=== PATIENT | female | born 1945 | race Hispanic/Latino ===

== ENCOUNTER 2018-11-20 12:29 | Inpatient (IN) | payer OTHER ==
[2018-11-20 12:52] VITALS: BMI 23.5
[2018-11-20] MEDS ORDERED: CIPROFLOXACIN 400mg IV 400 MG/200 ML BAG IV SCH (13:45)
[2018-11-20] MEDS: METRONIDAZOLE 500mg IVPB 500 MG/100 ML BAG IV SCH ×2 (13:49→17:01)
[2018-11-20] MEDS ORDERED: ROCURONIUM 50 MG/5 ML VIAL IV ONE (14:00)
[2018-11-20] MEDS ORDERED: POLYETHYL GLY 3350 17 GM/DOSE PO PRN (14:00)
[2018-11-20] MEDS ORDERED: ONDANSETRON 4 MG (ODT) TAB PO PRN (14:00)
[2018-11-20] MEDS ORDERED: DIPHENHYDRAMINE 25 MG TAB/CAP PO PRN (14:00)
[2018-11-20] MEDS ORDERED: LOPERAMIDE HCL 2 MG CAPSULE PO PRN (14:00)
[2018-11-20] MEDS ORDERED: PROPOFOL 200 MG/20 ML VIAL IV ONE (14:00)
[2018-11-20] MEDS ORDERED: FENTANYL CITR 100 MCG/2 ML ONE ×2 (14:00→15:09)
[2018-11-20] MEDS ORDERED: MIDAZOLAM HCL 2 MG/2 ML INJ ONE (14:00)
[2018-11-20] MEDS ORDERED: LIDOCAINE 1% MPF 5 ML VIAL ONE (14:00)
[2018-11-20] MEDS ORDERED: ACETAMINOPHEN 325 MG TABLET PO PRN (14:00)
[2018-11-20] MEDS ORDERED: NACHLORIDE 0.45% 1,000 ML IV SCH (14:00)
[2018-11-20] MEDS ORDERED: Ringers Lactate 1,000 ML IV ONE (14:07)
[2018-11-20] MEDS ORDERED: BUPIVACA 0.25%/EPI 0.0005%/PF 30 ML VIAL ONE (14:14)
[2018-11-20 14:17] LABS: Absolute Lymphocytes (CBC) 1.7 K/uL (0.7-4.9); Absolute Monocytes 1.4 K/uL (0.1-1.3); Absolute Neutrophil 11.8 K/uL (1.8-8.0); Basophils % 0.2 % (0-1.3); Eosinophils % 0.4 % (0-4.4); Hematocrit 37.1 % (36.0-45.0); Lymphocytes % 11.3 % (15.3-44.8); MPV 7.3 fL (7.6-11.3); Monocytes % 9.1 % (3.3-12.3); RBC Red Blood Cell Count 4.09 M/uL (3.86-4.86)
[2018-11-20] MEDS ORDERED: SUCCINYLCHOLINE 20 MG/ML (10 ML) IV ONE (14:17)
[2018-11-20 14:19] LABS: Protime INR 1.1
[2018-11-20 14:32] LABS: Urine Appearance CLEAR; Urine Bilirubin NEGATIVE (NEG); Urine Blood 1+ (NEG); Urine Color YELLOW; Urine Glucose NEGATIVE (NEG); Urine Microscopic Reflex ORDER UMIC; Urine Protein NEGATIVE (NEG); Urine Specific Gravity >=1.030 (1.005-1.030); Urine Urobilinogen 0.2 mg/dL (0.2-1.0); Urine pH 5.5 (5.0-7.0)
[2018-11-20 14:52] LABS: ALT/SGPT 54 U/L (12-78); AST/SGOT 53 U/L (15-37); Alkaline Phosphatase 193 U/L (45-117); BUN Blood Urea Nitrogen 9 mg/dL (7-18); Bicarbonate 21 mmol/L (21-32); Bilirubin Direct < 0.1 mg/dL (0-0.2); Bilirubin Total 0.3 mg/dL (0.2-1.0); Glucose Level 94 mg/dL (74-106); Magnesium 2.4 mg/dL (1.8-2.4); Potassium 4.4 mmol/L (3.5-5.1); Protein, Total 8.4 g/dL (6.4-8.2); Sodium Level 139 mmol/L (136-145)
[2018-11-20] MEDS ORDERED: GLYCOPYRROLATE 0.2 MG/ML SYR ONE ×2 (14:58→15:08)
[2018-11-20] MEDS ORDERED: KETOROLAC 30 MG/ML INJ ONE (14:58)
[2018-11-20] MEDS ORDERED: NEOSTIGMINE 1 MG/ML -10 ML VIAL ONE (15:03)
[2018-11-20] MEDS ORDERED: ONDANSETRON 4 MG/2 ML VIAL ONE (15:03)
--- NOTE | 2018-11-20 15:43 | P.OP ---
Preoperative diagnosis: Acute Appendicitis Postoperative diagnosis: Acute Perforated Appendicitis Primary procedure: Laparoscopic Appendectomy Anesthesia: GETA + Local Estimated blood loss: <20cc Specimen: Appendix Findings: Grossly inflammed, firm, perforated appendicitis with abscess Complications: None Drain(s): SIMON drain (10[place] SIMON) Transferred to: Recovery Room Condition: Good
[2018-11-20 16:04] LABS: Urine Bacteria <20 /HPF (<20); Urine Culture Reflex Order NOT NEEDED
[2018-11-20] MEDS ORDERED: METRONIDAZOLE 500mg IVPB 500 MG/100 ML BAG IV SCH (18:00)
[2018-11-20] MEDS: PIPER/TAZO/NS 3.375gm 3.375 GM/100 ML BAG IVPB SCH (18:00)
--- NOTE | 2018-11-20 18:12 | P.HP ---
Certification for Inpatient Patient admitted to: Inpatient With expected LOS: >2 Midnights Practitioner: I am a practitioner with admitting privileges, knowledge of patient current condition, hospital course, and medical plan of care. Services: Services provided to patient in accordance with Admission requirements found in Title 42 Section 412.3 of the Code of Federal Regulations Patient History Date of Service: 11/20/18 Reason for admission: ABDOMEN PAIN History of Present Illness: MR. ZHU CAME TO OFFICE WITH FOUR DAYS OF PAIN IN RLQ. SHE HAD NO FEVER, NAUSEA, VOMITING AND STILL IS NOT MUCH UNCOMFORTABLE. I HAD ORDERED CT SCAN OF ABDOMEN AND DR. JORDAN CALLED THAT SHE HAS PREFORATED APPENDICITIS. I SENT ORDERS FOR ADMISSION WITHIN MINUTES AND CALLED THE [facility] INST[facility]ER. SHE GOT HER A BED URGENTLY. DR HEDRICK DID SURGERY AND FOUND TO HAVE THE SAME DIAGNOSIS. I SAW HER AT LUNCH MINUTES AFTER ADMISSION. SHE WAS VERY STABLE AND ALSO SURPRISED ABOUT DIAGNOSIS. Allergies No Known Allergies Allergy (Verified 07/07/17 10:09) Home Medications: Calcium Carbonate/Vitamin D3 [Calcium 500 + D Tablet] 1 each PO DAILY 05/01/15 Omeprazole 40 mg PO DAILY 05/20/16 Iron 65 mg PO DAILY 11/20/18 Magnesium [Magnesium Gluconate] 1 tab PO DAILY 11/20/18 Pravastatin Sodium [Pravachol] 1 tab PO BEDTIME 11/20/18 - Past Medical/Surgical History Has patient received pneumonia vaccine in the past: Yes Diabetic: No -: cataract -: glaucoma -: hyperlipidemia -: gerd -: breast biopsy left - Family History Father -: Heart disease Mother -: Cancer, Other (see notes) Notes: breast cancer - Social History Smoking Status: Never smoker Alcohol use: No CD- Drugs: No Caffeine use: No Place of Residence: Home Review of Systems 10-point ROS is otherwise unremarkable Gastrointestinal: Abdominal Pain Physical Examination - Vital Signs Temperature: 96.8 F Blood Pressure: 123/62 Pulse: 78 Respirations: 16 Pulse Ox (%): 99 - Physical Exam General: Alert, In no apparent distress HEENT: Atraumatic, PERRLA, Mucous membr. moist/pink, EOMI, Sclerae nonicteric Neck: Supple, 2+ carotid pulse no bruit, No LAD, Without JVD or thyroid abnormality Respiratory: Clear to auscultation bilaterally, Normal air movement Cardiovascular: Regular rate/rhythm, Normal S1 S2 Gastrointestinal: No rebound, Tenderness (RLQ MILD. NO REBOUND.) Musculoskeletal: No tenderness Integumentary: No rashes Neurological: Normal gait, Normal speech, Normal strength at 5/5 x4 extr, Normal tone, Normal affect Lymphatics: No axilla or inguinal lymphadenopathy - Studies Laboratory Data (last 24 hrs) 11/20/18 13:58: Sodium 139, Potassium 4.4, BUN 9, Creatinine 0.55, Glucose 94, Magnesium 2.4, Total Bilirubin 0.3, AST 53 H, ALT 54, Alkaline Phosphatase 193 H 11/20/18 13:51: APTT Cancelled 11/20/18 13:51: PT 12.9 H, INR 1.10, APTT 28.6 11/20/18 13:51: WBC 14.9 H, Hgb 12.4, Hct 37.1, Plt Count 349 Assessment and Plan - Problems (Diagnosis) (1) Perforated appendix Current Visit: Yes Status: Acute Plan: UNUSUAL PRESENTATION WITH PAUCITY OF SYMPTOMS AND SIGNS. WBC IS MILD HIGH. DID WELL WITH SURGERY. I SAW DR. HEDRICK REPORT. - Advance Directives Does patient have a Living Will: No Does patient have a Durable POA for Healthcare: No
[2018-11-20] MEDS: HYDROMORPHONE HCL 1 MG/ML INJ IV PRN (21:04)
[2018-11-21] MEDS: METRONIDAZOLE 500mg IVPB 500 MG/100 ML BAG IV SCH ×3 (00:04→12:00)
[2018-11-21] MEDS: ONDANSETRON 4 MG/2 ML VIAL IV PRN ×2 (00:36→20:53)
[2018-11-21] MEDS: PIPER/TAZO/NS 3.375gm 3.375 GM/100 ML BAG IVPB SCH ×4 (00:37→23:42)
--- NOTE | 2018-11-21 01:26 | CON ---
Date of Consultation: 11/20/2018 Brief History Of Present Illness: The patient is a 73-year-old female, who presents to the hospital with complaints of right lower quadrant abdominal pain, seen by Dr. Johnson's office. He had seen her with the complaints of pain beginning approximately 2-3 days prior and it was getting progressively w orse. She states that she believes this is 4th day of abdominal pain in the right lower quadrant. S he had a CT scan of the abdomen and pelvis ordered, which Dr. Merlos believed was perforated append icitis. She was then transferred to the hospital and admitted by Dr. Johnson. She states that she had been better feeling since her admission to the hospital with pain medication. She had no nausea, vo miting, sick contacts, recent travel. Past Medical History: Significant for cataracts, glaucoma, hyperlipidemia, GERD. Past Surgical History: Includes a left breast biopsy. Family History: Her father had heart disease. Mother had cancer of the breast. Allergies: NO KNOWN DRUG ALLERGIES. Medications: Include calcium carbonate, vitamin D3, omeprazole, iron, magnesium gluconate, and prava statin. Social History: She denies smoking, alcohol, recreational drug use. Review of Systems: A 10-point review of systems other than HPI, denies. Physical Examination: Vital Signs: At the time of examination, her BMI is 23.5. Her vital signs were blood pressure 123/6 2, pulse 78, respiratory rate 16, temperature 96.8. General: She is awake, alert, oriented. Psychiatric: She is appropriate and conversive. HEENT: She is normocephalic. Sclerae anicteric. Mucous membranes moist. Oropharynx clear. Neck: Supple. No JVD. Chest: Normal expansion and excursion. Cardiovascular: Regular are and rhythm. Pulmonary: Clear to auscultation bilaterally. Abdomen: Soft with positive right lower quadrant focal peritonitis and guarding at McBurney's point. Skin: Warm and dry. Extremities: No clubbing, cyanosis, edema. Laboratory Data: She had a laboratory exam, which reveals a white blood count of 14.9, hemoglobin is 12.4, hematocrit 37.1, platelet count is 349, neutrophils are 79%. Her PT 12.9, INR 1.11, PTT 28.6. Sodium 139, potassium 4.4, chloride 108, carbon dioxide 21, BUN 9, creatinine 0.55, glucose 94, mag nesium 2.4. Total bilirubin 0.3. Her AST is 53, ALT 54, alkaline phosphatase 183. Her urine showed 1+ blood and 5-10 red blood cells. She had imaging performed, which included the CT scan of the abd omen and pelvis as described. The official report was read as suppurative appendicitis, dilated stru cture extends off the cecum. It is retrocecal and likely represents the appendix. Stranding and ill -defined fluid is present with adjacent tissue while the cecum is markedly thickened, likely secondar y to reactive inflammation. Free air is not noted. The official impression was consistent with supp urative appendicitis. Assessment And Plan: This is a 73-year-old female, who comes in with signs and symptoms of acute pos sibly early perforated appendicitis versus suppurative appendicitis. 1.IV fluid hydration. 2.Antibiotic coverage. 3.I explained risks, benefits, and alternatives of laparoscopic, possible open appendectomy includin g but not limited to bleeding, infection, damage to surrounding tissues, need for further operation a nd procedures. The patient agrees to proceed as indicated. Thank you for this interesting consult. JASPREET/ANNI Voice ID: [id number] Report ID: [id number]
--- NOTE | 2018-11-21 02:32 | OP ---
Date of Procedure: 11/20/2018 Surgeon: Jakob Wilkerson MD, Preoperative Diagnosis: Acute appendicitis. Postoperative Diagnosis: Acute perforated appendicitis. Primary Procedure: Laparoscopic appendectomy. Anesthesia: General endotracheal plus local with 0.25% Marcaine. Estimated Blood Loss: 20 cc. Specimen: Vermiform appendix. Findings: Grossly inflamed, firm, perforated appendicitis with abscess. The appendix was firmly adh erent to the lateral abdominal wall with obvious pus contained within this area. There was free perf oration of the appendix at the proximal body near the confluence of the appendix to the cecum. The a brandi also had some murky fluid evident throughout. Complications: None. Drains: A 10-[place] flat SIMON drain placed. Disposition: Transferred to recovery room in good condition. Procedure In Detail: After informed was obtained, the patient was brought to the operating room, pre pped and draped in the usual sterile fashion. After adequate anesthesia was achieved, an infraumbili jon area was anesthetized with 0.25% Marcaine and sharply incised. A 5-mm trocar was introduced into the abdomen without evidence of complication. Insufflation was obtained to 15 mmHg at this time. T here was no injury to vital structures upon entering the abdomen. The abdomen was inspected. There was gross murky fluid evident. The appendix was not immediately visualized. Additional trocar site was chosen in the suprapubic region. This was similarly anesthetized and sharply incised. A 5-mm tr ocar was introduced into the abdomen without evidence of complication. The umbilical trocar was then up-sized to a 12 mm under direct visualization without evidence of complication. Additional trocar site was chosen in the left lower quadrant. This was similarly anesthetized and sharply incised. A 5-mm trocar was introduced into the abdomen without evidence of complication. The patient was positi oned in head down, right side up position. A ratcheted grasper was used to grasp the area of the cec um. The cecum could not be mobilized easily at this point, and the LigaSure device was brought. Usi ng both blunt dissection and the LigaSure device and hydrodissection, the cecum was mobilized off the lateral abdominal wall to expose an obviously perforated appendicitis with abscess. This was suctio emiliano out throughout the procedure and there was obvious perforation of the appendix at this time. The appendix was essentially curled up along the lateral abdominal wall on the lateral aspect of the cec um and firmly adherent to both the structures. These were slowly and meticulously mobilized off the abdominal wall as well as off the lateral aspect of the cecum until the mesoappendix was visualized. The mesoappendix was taken down using the LigaSure device up to the confluence of the cecum and the appendiceal junction. The Endo ADRYAN-35 blue load was then fired across the base of the appendix at th e confluence of the cecum with good approximation of tissues. Additional Endoloop was placed across this as the perforation was somewhat near to this area. The Vicryl Endoloop was placed around this a nd secured and snipped appropriately. The area was copiously irrigated at this time and the appendix was placed in the EndoCatch bag and removed with the umbilical trocar. Re-insufflation was obtained at this time. The area was copiously irrigated multiple times with 3 L of saline until the abdomen was completely clear and there was no bleeding at the end of the procedure. The staple line appeared to be good and intact without any evidence of leakage. A 10-[place] flat SIMON drain was then brought i n through the trocar port and secured in the right pericolic gutter near the staple line. The patien t was positioned in neutral position. The remainder of the abdomen was suctioned out until completel y dry and the umbilical trocar site was removed. The umbilical trocar site was then closed using a Rubén Rodriguez suture passer and 0 Vicryl in interrupted fashion with good approximation of tissues. The abdomen was then completely desufflated under direct visualization without evidence of complicat ion. All trocars were removed. All skin incisions were copiously irrigated. The drain site was the right lower quadrant abdominal stab incision from previous trocar placement. This was secured to th e skin using the 2-0 nylon suture with good approximation of tissues. All skin incisions were then c opiously irrigated once again and dried and closed with a 4-0 Monocryl in running fashion. Dermabond was placed over top. The patient tolerated the procedure well without evidence of complication and transferred to PACU in good condition. All counts were correct at the end of the case. JASPREET/ANNI Voice ID: [id number] Report ID: [id number]
[2018-11-21 04:14] LABS: Absolute Lymphocytes (CBC) 1.1 K/uL (0.7-4.9); Absolute Monocytes 0.9 K/uL (0.1-1.3); Absolute Neutrophil 15.2 K/uL (1.8-8.0); Basophils % 0.2 % (0-1.3); Hematocrit 34.1 % (36.0-45.0); Lymphocytes % 6.2 % (15.3-44.8); MPV 7.3 fL (7.6-11.3); Monocytes % 5.2 % (3.3-12.3); RBC Red Blood Cell Count 3.74 M/uL (3.86-4.86)
[2018-11-21 04:34] LABS: BUN Blood Urea Nitrogen 7 mg/dL (7-18); Bicarbonate 26 mmol/L (21-32); Glucose Level 130 mg/dL (74-106); Magnesium 2.2 mg/dL (1.8-2.4); Potassium 3.9 mmol/L (3.5-5.1); Sodium Level 140 mmol/L (136-145)
[2018-11-21 04:49] LABS: Blood Morphology Comment NOT SEEN (NOT SEEN); Platelet Estimate ADEQ
[2018-11-21] MEDS: PANTOPRAZOLE 40MG TABLET PO SCH (06:38)
--- NOTE | 2018-11-21 07:51 | EKG ---
Test Date: 2018-11-20 Test Time: 14:10:30 Neurosurgical Physician Assistant: ARACELI MEASUREMENT RESULTS: Intervals: Rate: 80 NM: 156 QRSD: 78 QT: 390 QTc: 449 [place]: P: 63 NM: 156 QRS: 5 T: 43 INTERPRETIVE STATEMENTS: Normal sinus rhythm Normal ECG Compared to ECG 03/25/2015 09:31:45 No significant changes Electronically Signed On 11-21-18 07:50:49 CDT by Cristhian Doe
--- NOTE | 2018-11-21 10:03 | P.PN ---
Subjective Date of Service: 11/21/18 Chief Complaint: ABDOMEN PAIN Patient has pain in the lower abdomen, mostly in RLQ. No acute events, tolerating minimal clears Physical Examination - Vital Signs Temperature: 97.3 F Blood Pressure: 129/60 Pulse: 79 Respirations: 20 Pulse Ox (%): 94 - Physical Exam General: Alert, In no apparent distress, Cooperative Gastrointestinal: Other (soft, mild to moderate RLQ TTP, minimal distention, SIMON in place, serosanguanous discharge) - Studies Laboratory Data (last 24 hrs) 11/21/18 03:24: Sodium 140, Potassium 3.9, BUN 7, Creatinine 0.53 L, Glucose 130 H, Magnesium 2.2 11/21/18 03:24: WBC 17.2 H D, Hgb 11.2 L, Hct 34.1 L, Plt Count 380 11/20/18 13:58: Sodium 139, Potassium 4.4, BUN 9, Creatinine 0.55, Glucose 94, Magnesium 2.4, Total Bilirubin 0.3, AST 53 H, ALT 54, Alkaline Phosphatase 193 H 11/20/18 13:51: APTT Cancelled 11/20/18 13:51: PT 12.9 H, INR 1.10, APTT 28.6 11/20/18 13:51: WBC 14.9 H, Hgb 12.4, Hct 37.1, Plt Count 349 Assessment And Plan - Current Problems (Diagnosis) (1) Perforated appendix Current Visit: Yes Status: Acute Plan: - continue pain regime with PO / IV combination, but encourage PO - Incentive spirometry Q15 min with goal of 15cc/kg - continue IV hydration - continue antibiotic coverage - insulin sliding scale - serial exams - daily labs
[2018-11-21] MEDS: D5.45NS W/KCL 20MEQ 20 MEQ/1,000 ML BAG IV SCH ×2 (11:07→20:51)
[2018-11-21] MEDS: INSULIN -REGULAR HUMAN 50 UNIT/0.5 ML ML SQ SCH ×3 (11:19→20:53)
[2018-11-21] MEDS: HYDROCODONE/APAP 5/325 MG TAB PO PRN (13:00)
[2018-11-21] MEDS: HYDROMORPHONE HCL 1 MG/ML INJ IV PRN ×2 (17:33→23:42)
--- NOTE | 2018-11-21 22:01 | P.PN ---
Subjective Date of Service: 11/21/18 Chief Complaint: SP APPENDIX ABSCESS SURGERY Subjective: Improving DELROY IS DOING GREAT. SHE IS POST OP AND HAS NO NEW COMPLAINTS. Review of Systems 10-point ROS is otherwise unremarkable Physical Examination - Vital Signs Temperature: 96.5 F Blood Pressure: 143/69 Pulse: 83 Respirations: 16 Pulse Ox (%): 94 - Physical Exam General: Mild distress HEENT: Atraumatic, PERRLA, EOMI Neck: Supple, JVD not distended Respiratory: Clear to auscultation bilaterally, Normal air movement Cardiovascular: Regular rate/rhythm, Normal S1 S2 Gastrointestinal: Hypoactive (POST OP DAY 1.) Musculoskeletal: No tenderness Integumentary: No rashes Neurological: Normal speech, Normal tone, Normal affect Lymphatics: No axilla or inguinal lymphadenopathy - Studies Laboratory Data (last 24 hrs) 11/21/18 03:24: Sodium 140, Potassium 3.9, BUN 7, Creatinine 0.53 L, Glucose 130 H, Magnesium 2.2 11/21/18 03:24: WBC 17.2 H D, Hgb 11.2 L, Hct 34.1 L, Plt Count 380 Medications List Reviewed: Yes Assessment And Plan - Current Problems (Diagnosis) (1) Perforated appendix Current Visit: Yes Status: Acute Plan: UNUSUAL PRESENTATION WITH PAUCITY OF SYMPTOMS AND SIGNS. WBC IS MILD HIGH. DID WELL WITH SURGERY. I SAW DR. HEDRICK REPORT. STABLE, CBC IN AM POSSIBLE DC IN AM.
[2018-11-22] MEDS: HYDROMORPHONE HCL 1 MG/ML INJ IV PRN ×3 (03:50→11:14)
[2018-11-22] MEDS: ONDANSETRON 4 MG/2 ML VIAL IV PRN ×2 (03:53→11:14)
[2018-11-22] MEDS: PANTOPRAZOLE 40MG TABLET PO SCH (05:43)
[2018-11-22] MEDS: D5.45NS W/KCL 20MEQ 20 MEQ/1,000 ML BAG IV SCH ×3 (06:04→19:00)
[2018-11-22 06:56] LABS: Absolute Lymphocytes (CBC) 1.1 K/uL (0.7-4.9); Absolute Monocytes 1.1 K/uL (0.1-1.3); Absolute Neutrophil 16.9 K/uL (1.8-8.0); Basophils % 0.2 % (0-1.3); Eosinophils % 0.1 % (0-4.4); Lymphocytes % 5.6 % (15.3-44.8); MPV 6.9 fL (7.6-11.3); Monocytes % 5.8 % (3.3-12.3); RBC Red Blood Cell Count 3.93 M/uL (3.86-4.86)
[2018-11-22 07:12] LABS: BUN Blood Urea Nitrogen 5 mg/dL (7-18); Bicarbonate 25 mmol/L (21-32); Glucose Level 151 mg/dL (74-106); Magnesium 2.4 mg/dL (1.8-2.4); Phosphorus 1.4 mg/dL (2.5-4.9); Potassium 4.2 mmol/L (3.5-5.1); Sodium Level 139 mmol/L (136-145)
[2018-11-22] MEDS: INSULIN -REGULAR HUMAN 50 UNIT/0.5 ML ML SQ SCH ×4 (07:30→21:00)
[2018-11-22] MEDS ORDERED: POTASSIUM PHOS IN 0.9 % NACL 15 MMOL/250 ML BAG IV ONE (08:00)
[2018-11-22] MEDS: PIPER/TAZO/NS 3.375gm 3.375 GM/100 ML BAG IVPB SCH ×2 (08:02→18:12)
[2018-11-22] MEDS: ENOXAPARIN 40 MG/0.4 ML SQ SCH (08:05)
[2018-11-22] MEDS ORDERED: Ringers Lactate 500 ML IV ONE (08:36)
[2018-11-22 08:59] LABS: Blood Morphology Comment NOT SEEN (NOT SEEN); Platelet Estimate INCR
[2018-11-22] MEDS ORDERED: ERTAPENEM SODIUM 1 GM VIAL IVPB SCH (09:00)
[2018-11-22] MEDS ORDERED: NA CHLORIDE 0.9% 0 ML ONE (09:26)
--- NOTE | 2018-11-22 10:18 | RAD REPORT ---
EXAM DESCRIPTION: RAD - Abdomen W Erect - 11/22/2018 9:50 am CLINICAL HISTORY: Abdominal pain FINDINGS: Mildly dilated small bowel may indicate an ileus in this patient status post recent abdom inal surgery. Contrast is present within the colon. Right drains are in place. Minimal free air is seen and is expected. If the patient's clinical symptoms do not improve follow-up CT examination would be recommended
[2018-11-22] MEDS: ERTAPENEM NA 1 GM in NA CHLORIDE 0.9% 100 ML IVPB SCH (10:19)
--- NOTE | 2018-11-22 10:24 | P.PN ---
Subjective Date of Service: 11/22/18 Chief Complaint: SP APPENDIX ABSCESS SURGERY Patient has pain in the lower abdomen, mostly in RLQ. No acute events, tolerating minimal clears, has nausea, no gas or BM Physical Examination - Vital Signs Temperature: 96.3 F Blood Pressure: 155/62 Pulse: 71 Respirations: 18 Pulse Ox (%): 95 - Physical Exam General: Alert, Mild distress Respiratory: Normal air movement, Diminished Gastrointestinal: Other (soft, moderate distention, + mild to moderate TTP in RLQ, SIMON serous) Musculoskeletal: No clubbing, No swelling Neurological: Normal speech - Studies Laboratory Data (last 24 hrs) 11/22/18 06:37: Sodium 139, Potassium 4.2, BUN 5 L, Creatinine 0.51 L, Glucose 151 H, Phosphorus 1.4 L, Magnesium 2.4 11/22/18 06:37: WBC 19.2 H, Hgb 11.9 L, Hct 36.0, Plt Count 449 H Microbiology Data (last 24 hrs): 11/20/18 14:02 Clean Catch Urine [place] Count - Final <10,000 CFU/ML. 11/20/18 14:02 Clean Catch Urine - Final MIXED ALEXSANDRA. Medications List Reviewed: Yes Assessment And Plan - Current Problems (Diagnosis) (1) Perforated appendix Current Visit: Yes Status: Acute Plan: Neuro - continue pain regime with PO / IV combination, but encourage PO CVS - normotensive, normal pulse Resp - Incentive spirometry Q15 min with goal of 15cc/kg, RT consult to encourage IS, cough deep breathing GI - Continue serial exams, Abd X-ray, no contrast evidence of leak, mild ileus , follow SIMON output FEN -I & O not recorded - continue IV hydration, increase to 125cc/hr, bolus 500cc LR x 1 now, electrolyte replacement protocol for Mg, Phos, K+, continue clear liquids for now ID - worsening leukocytosis - likely multifactorial - post or SIRS, intra- abdominal infection, - Add Invanz 1 gram IV, will consider additional coverage if no improvement, check lactate levels daily, daily labs Prophylaxis - low dose insulin sliding scale, lovenox, ambulate with assist, protonix for GERD history PT consult for ambulation
[2018-11-22] MEDS ORDERED: SODIUM CHLORIDE 0.9% 10ML INJ IV PRN (21:24)
--- NOTE | 2018-11-22 21:29 | P.PN ---
Subjective Date of Service: 11/22/18 Chief Complaint: SP APPENDIX ABSCESS SURGERY Subjective: C/O voiced (DIZZY WHEN EYES OPEN, ABDOMEN PAIN AND DISTENSION.) DELROY IS DOING GREAT. SHE IS POST OP AND HAS NO NEW COMPLAINTS. Review of Systems 10-point ROS is otherwise unremarkable Gastrointestinal: As per HPI Physical Examination - Vital Signs Temperature: 98.0 F Blood Pressure: 136/55 Pulse: 75 Respirations: 16 Pulse Ox (%): 96 - Physical Exam General: Moderate distress HEENT: Atraumatic, PERRLA, EOMI Neck: Supple, JVD not distended Respiratory: Clear to auscultation bilaterally, Normal air movement Cardiovascular: Regular rate/rhythm, Normal S1 S2 Gastrointestinal: Absent bowel sounds, Distended Musculoskeletal: No tenderness Integumentary: No rashes Neurological: Normal speech, Normal tone, Normal affect Lymphatics: No axilla or inguinal lymphadenopathy - Studies Laboratory Data (last 24 hrs) 11/22/18 06:37: Sodium 139, Potassium 4.2, BUN 5 L, Creatinine 0.51 L, Glucose 151 H, Phosphorus 1.4 L, Magnesium 2.4 11/22/18 06:37: WBC 19.2 H, Hgb 11.9 L, Hct 36.0, Plt Count 449 H Microbiology Data (last 24 hrs): 11/20/18 14:02 Clean Catch Urine [place] Count - Final <10,000 CFU/ML. 11/20/18 14:02 Clean Catch Urine - Final MIXED ALEXSANDRA. Medications List Reviewed: Yes Assessment And Plan - Current Problems (Diagnosis) (1) Perforated appendix Current Visit: Yes Status: Acute Plan: UNUSUAL PRESENTATION WITH PAUCITY OF SYMPTOMS AND SIGNS. WBC IS MILD HIGH. DID WELL WITH SURGERY. I SAW DR. HEDRICK REPORT. STABLE, CBC IN AM POSSIBLE DC IN AM. PARALYTIC ILEUS EXPECTED. RESUME NGT WITH LIS. DR. HEDRICK CALLED. SHE HAS COMPLICATED PERFORATED APPENDIX WITH FUSION OF THE SAC TO THE ABDOMEN WALL. SHE WILL TAKE TIME TO RECOVER. IV INVANZ WILL COVER ALL CONCERNED BACTERIA INCLUDING ANEROBES STOP ZOSYN.
[2018-11-22] MEDS: HYDROCODONE/APAP 5/325 MG TAB PO PRN (23:04)
[2018-11-23] MEDS: D5.45NS W/KCL 20MEQ 20 MEQ/1,000 ML BAG IV SCH (02:15)
[2018-11-23 07:00] LABS: Absolute Lymphocytes (CBC) 1.9 K/uL (0.7-4.9); Absolute Monocytes 1.1 K/uL (0.1-1.3); Basophils % 0.3 % (0-1.3); Hematocrit 35.1 % (36.0-45.0); Lymphocytes % 15.9 % (15.3-44.8); MPV 6.8 fL (7.6-11.3); Monocytes % 9.2 % (3.3-12.3); RBC Red Blood Cell Count 3.88 M/uL (3.86-4.86)
[2018-11-23 07:07] LABS: BUN Blood Urea Nitrogen 3 mg/dL (7-18); Bicarbonate 27 mmol/L (21-32); Glucose Level 110 mg/dL (74-106); Magnesium 2.4 mg/dL (1.8-2.4); Phosphorus 1.4 mg/dL (2.5-4.9); Sodium Level 145 mmol/L (136-145)
[2018-11-23] MEDS: INSULIN -REGULAR HUMAN 50 UNIT/0.5 ML ML SQ SCH ×4 (07:30→21:00)
[2018-11-23] MEDS: ENOXAPARIN 40 MG/0.4 ML SQ SCH (08:13)
[2018-11-23] MEDS: PANTOPRAZOLE 40 MG INJ IVP SCH ×2 (08:13→21:37)
[2018-11-23] MEDS: POTASS/SODIUM PHOSPHATE 1 PKT POWD.PACK PO SCH ×3 (10:07→13:05)
[2018-11-23] MEDS: ERTAPENEM NA 1 GM in NA CHLORIDE 0.9% 100 ML IVPB SCH (10:12)
--- NOTE | 2018-11-23 10:22 | P.PN ---
Subjective Date of Service: 11/23/18 Chief Complaint: SP APPENDIX ABSCESS SURGERY Much improved, pain now down to 3 at worst, had 2 soft BMs, bloating improving Physical Examination - Vital Signs Temperature: 97.6 F Blood Pressure: 131/59 Pulse: 73 Respirations: 16 Pulse Ox (%): 96 - Physical Exam General: Alert, In no apparent distress, Cooperative Gastrointestinal: Other (soft, mild RLQ TTP, mild distention, SIMON serous output, no guarding, no rebound, incisions clean) - Studies Laboratory Data (last 24 hrs) 11/23/18 06:22: Sodium 145, Potassium 4.0, BUN 3 L, Creatinine 0.46 L, Glucose 110 H, Phosphorus 1.4 L, Magnesium 2.4 11/23/18 06:22: WBC 12.2 H D, Hgb 11.7 L, Hct 35.1 L, Plt Count 437 H Microbiology Data (last 24 hrs): 11/20/18 14:02 Clean Catch Urine [place] Count - Final <10,000 CFU/ML. 11/20/18 14:02 Clean Catch Urine - Final MIXED ALEXSANDRA. Medications List Reviewed: Yes Assessment And Plan - Current Problems (Diagnosis) (1) Perforated appendix Current Visit: Yes Status: Acute Plan: Neuro - continue pain regime with PO / IV combination, but encourage PO CVS - normotensive, normal pulse Resp - Incentive spirometry Q15 min with goal of 15cc/kg, RT consult to encourage IS, cough deep breathing GI - Continue serial exams, mild ileus - improving, follow SIMON output FEN -continue IV hydration, IVF @ 125cc/hr, electrolyte replacement protocol for Mg, Phos, K+, advance diet to soft ID - improving leukocytosis - likely multifactorial - post or SIRS, intra- abdominal infection, - Add Invanz 1 gram IV, will consider additional coverage if no improvement, check lactate levels daily, daily labs Prophylaxis - low dose insulin sliding scale, lovenox, ambulate with assist, protonix for GERD history PT consult for ambulation Dr Escoto covering until monday
[2018-11-23] MEDS: HYDROCODONE/APAP 5/325 MG TAB PO PRN ×2 (13:05→21:38)
--- NOTE | 2018-11-23 15:01 | P.PN ---
Subjective Date of Service: 11/23/18 Chief Complaint: SP APPENDIX ABSCESS SURGERY Subjective: Improving DELROY IS DOING GREAT. SHE IS POST OP AND HAS NO NEW COMPLAINTS. SHE IS FEELING A LOT BETTER ON INVANZ. NO MORE DIZZY. Review of Systems 10-point ROS is otherwise unremarkable General: Weakness, Malaise Gastrointestinal: Abdominal Pain (POST OP.) Physical Examination - Vital Signs Temperature: 97.1 F Blood Pressure: 135/54 Pulse: 74 Respirations: 18 Pulse Ox (%): 96 - Physical Exam General: Alert, Mild distress HEENT: Atraumatic, PERRLA, EOMI Neck: Supple, JVD not distended Respiratory: Clear to auscultation bilaterally, Normal air movement Cardiovascular: Regular rate/rhythm, Normal S1 S2 Gastrointestinal: No rebound, Absent bowel sounds Musculoskeletal: No tenderness Integumentary: No rashes Neurological: Normal speech, Normal tone, Normal affect Lymphatics: No axilla or inguinal lymphadenopathy - Studies Laboratory Data (last 24 hrs) 11/23/18 06:22: Sodium 145, Potassium 4.0, BUN 3 L, Creatinine 0.46 L, Glucose 110 H, Phosphorus 1.4 L, Magnesium 2.4 11/23/18 06:22: WBC 12.2 H D, Hgb 11.7 L, Hct 35.1 L, Plt Count 437 H Medications List Reviewed: Yes Assessment And Plan - Current Problems (Diagnosis) (1) Perforated appendix Current Visit: Yes Status: Acute Plan: UNUSUAL PRESENTATION WITH PAUCITY OF SYMPTOMS AND SIGNS. WBC IS MILD HIGH. DID WELL WITH SURGERY. I SAW DR. HEDRICK REPORT. STABLE, CBC IN AM POSSIBLE DC IN AM. PARALYTIC ILEUS EXPECTED. RESUME NGT WITH LIS. DR. HEDRICK CALLED. SHE HAS COMPLICATED PERFORATED APPENDIX WITH FUSION OF THE SAC TO THE ABDOMEN WALL. SHE WILL TAKE TIME TO RECOVER. IV INVANZ WILL COVER ALL CONCERNED BACTERIA INCLUDING ANEROBES STOP ZOSYN. RESUME MEDS. CONSULT PT. MARIELLA SC.
[2018-11-24] MEDS: D5.45NS W/KCL 20MEQ 20 MEQ/1,000 ML BAG IV SCH (01:19)
[2018-11-24] MEDS: INSULIN -REGULAR HUMAN 50 UNIT/0.5 ML ML SQ SCH ×2 (07:30→11:30)
[2018-11-24 09:42] VITALS: O2SAT 95
[2018-11-24] MEDS: PANTOPRAZOLE 40 MG INJ IVP SCH (09:50)
[2018-11-24] MEDS: ENOXAPARIN 40 MG/0.4 ML SQ SCH (09:50)
[2018-11-24] MEDS: ERTAPENEM NA 1 GM in NA CHLORIDE 0.9% 100 ML IVPB SCH (09:54)
--- NOTE | 2018-11-24 10:54 | P.DS ---
Admission Date: 11/20/18 Discharge Date: 11/24/18 Disposition: ROUTINE DISCHARGE Discharge Condition: FAIR Reason for Admission: SP APPENDIX ABSCESS SURGERY - Problems (1) Perforated appendix Current Visit: Yes Status: Acute Brief History of Present Illness: MR. ZHU CAME TO OFFICE WITH FOUR DAYS OF PAIN IN RLQ. SHE HAD NO FEVER, NAUSEA, VOMITING AND STILL IS NOT MUCH UNCOMFORTABLE. I HAD ORDERED CT SCAN OF ABDOMEN AND DR. JORDAN CALLED THAT SHE HAS PREFORATED APPENDICITIS. I SENT ORDERS FOR ADMISSION WITHIN MINUTES AND CALLED THE PHYSICAL THERAPIST CENTER MANAGER. SHE GOT HER A BED URGENTLY. DR HEDRICK DID SURGERY AND FOUND TO HAVE THE SAME DIAGNOSIS. I SAW HER AT LUNCH MINUTES AFTER ADMISSION. SHE WAS VERY STABLE AND ALSO SURPRISED ABOUT DIAGNOSIS. PATIENT IS DOING GREAT. SHE WANTS GO HOME. DR. GREY HAS APPROVED IT AND ALSO DR. HEDRICK. CALLED IN [place]. WANTS 5 DAYS OF LEVAQUIN AND FLAGYL. Vital Signs/Physical Exam: Temp Pulse Resp BP Pulse Ox 97.1 F 73 18 143/79 H 98 11/24/18 08:00 11/24/18 08:00 11/24/18 08:00 11/24/18 08:00 11/24/18 08:00 Laboratory Data at Discharge: WBC 12.2 K/uL (4.3-10.9) H D 11/23/18 06:22 Hgb 11.7 g/dL (12.0-15.0) L 11/23/18 06:22 Hct 35.1 % (36.0-45.0) L 11/23/18 06:22 Plt Count 437 K/uL (152-406) H 11/23/18 06:22 PT 12.9 SECONDS (9.5-12.5) H 11/20/18 13:51 INR 1.10 11/20/18 13:51 APTT 28.6 SECONDS (24.3-36.9) 11/20/18 13:51 Sodium 145 mmol/L (136-145) 11/23/18 06:22 Potassium 3.9 mmol/L (3.5-5.1) 11/24/18 06:30 BUN 3 mg/dL (7-18) L 11/23/18 06:22 Creatinine 0.46 mg/dL (0.55-1.3) L 11/23/18 06:22 Glucose 110 mg/dL (74-106) H 11/23/18 06:22 Phosphorus 1.4 mg/dL (2.5-4.9) L 11/23/18 06:22 Magnesium 2.4 mg/dL (1.8-2.4) 11/23/18 06:22 Total Bilirubin 0.3 mg/dL (0.2-1.0) 11/20/18 13:58 AST 53 U/L (15-37) H 11/20/18 13:58 ALT 54 U/L (12-78) 11/20/18 13:58 Alkaline Phosphatase 193 U/L (45-117) H 11/20/18 13:58 Home Medications: Omeprazole 40 mg PO DAILY 05/20/16 Magnesium [Magnesium Gluconate] 1 tab PO DAILY 11/20/18 Pravastatin Sodium [Pravachol] 1 tab PO BEDTIME 11/20/18 levoFLOXacin [Levaquin*] 500 mg PO DAILY #5 tab 11/24/18 metroNIDAZOLE [Flagyl] 500 mg PO Q8H #15 tablet 11/24/18 New Medications: levoFLOXacin [Levaquin*] 500 mg PO DAILY #5 tab metroNIDAZOLE [Flagyl] 500 mg PO Q8H #15 tablet Patient Discharge Instructions: FULL LIQUID DIET ADVANCE TO REGUALR DIET ONCE YOU TOLERATE. DR. GREY AND DR. HEDRICK BOTH ARE READY TO SEND YOU HOME. TAKE ANTIBIOTICS FOR 5 DAYS. NURSES WILL CALL IT IN.
[2018-11-24 12:04] VITALS: BP 141/60; TEMP 97.6
--- NOTE | 2018-11-24 16:02 | PN ---
Dr. Escoto covering for Dr. Wilkerson. Subjective: The patient had laparoscopic appendectomy done on Monday and she is clinically doing we ll and I will just follow as Dr. Wilkerson is out of town. Objective: General: She is awake, alert, no complaint. Tolerating diet. Vital signs: Stable. She is afebrile. Abdomen: SIMON drain; however, still has significant amount of serosanguineous fluid. 360 cc yesterday and then last shift 160 cc. Abdomen is benign. Laboratory Data: Shows a white count down to 12.2. There is no left shift. Assessment: A 73-year-old female, status post laparoscopic appendectomy. Recommendation: From a surgical standpoint, patient can be discharged to home. Follow up with Dr. Ceci law. Antibiotics per Dr. Johnson and patient to record SIMON output q.12 and bring the record to the o ffice. /MODL Voice ID: [id number] Report ID: [id number]
[2018-11-25] MEDS ORDERED: SCOPOLAMINE HYDROBROMIDE PATCH TD SCH (09:00)
== END 2018-11-24 13:39 | disposition home or self-care (01) | DRG 340 ==
LOC: 4TH 12:29
PROVIDERS: ADMIT Internal Medicine; ATTEND Internal Medicine
PROC: 0DTJ4ZZ Resection of Appendix, Percutaneous Endoscopic Approach (ICD-10-PCS; principal; 2018-11-20 13:30)
DX: K35.32 Acute appendicitis with perforation, localized peritonitis, and gangrene, without abscess (principal); H40.9 Unspecified glaucoma; E78.5 Hyperlipidemia, unspecified; K21.9 Gastro-esophageal reflux disease without esophagitis
CPT/HCPCS: 36415; 74019; 74177; 80048; 80076; 81003; 81015; 82962; 83605; 83735; 84100; 84132; 84443; 85025; 85610; 85730; 87086; 87088; 88304; 88305; 93005; 96365; 96367; 97116; 97163; 97530; C9113; J0330; J0744; J1170; J1335; J1650; J2250; J2405; J2543; J2704; J2710; J3010; Q9967

== ENCOUNTER 2022-05-18 09:28 | Emergency (ER) | payer OTHER ==
--- OUTSIDE RECORDS SUMMARY | 2022-05-18 09:31 | XMS REPORT | Clinical Summary ---
:1945 Author Organization [facility] MD [facility] Address [address] [place] [id number] Care Team Providers Name Role Phone Unavailable Primary Care Provider Unavailable Allergies Not on File Medications Not on file Active Problems Not on file Immunizations Name Administration Dates Next Due Pfizer SARS-CoV-2 Vaccination (Purple Cap) 03/27/2021 Social History Tobacco Use Types Packs/Day Years Used Date Smoking Tobacco: Never Assessed Sex Assigned at Date Recorded Not on file Last Filed Vital Signs Not on file Plan of Treatment Health Maintenance Due Date Last Done Comments COVID-19 Vaccination (4 - Booster 05/22/2021 03/27/2021, , for Pfizer series) 08/21/2020 Results Not on fileafter 05/18/2021 Insurance Payer Benefit Plan / Subscriber ID Effective Dates Phone Addre ss Type Group HUMANA HUMANA GOLD [id number] 2019-Presen [address] [id number] Medicare MEDICARE PLUS MEDICARE [facility] [id number]
--- OUTSIDE RECORDS SUMMARY | 2022-05-18 09:32 | XMS REPORT | Continuity of Care Document ---
:1945 Author Organization [facility] t Address [facility] [place] [id number] Care Team Providers Name Role Phone Iliana Pineda Attending Clinician Unavailable Unique Quesada Attending Clinician Unavailable UTE CHOUDHARY Attending Clinician Unavailable Ute Choudhary MD Attending Clinician Mohamud Sesay MD Attending Clinician Doctor Unassigned, Chiawuli Tak Attending Clinician Unavailable Mohamud Sesay MD Admitting Clinician Payers Payer Name Policy Type Policy Number Effective Date Expiration Date S ource [employer] MEDICARE [id number] 2019 ADVANTAGE HMO 00:00:00 [employer] MEDICARE 53 [id number] [facility] MEDICARE NOVITAS [id number] 2013 [facility] 00:00:00 [facility] EDISON PERALTA PLUS [id number] 2019 MEDICARE HMO 00:00:00 Problems Condition Condition Condition Status Onset Resolution Last Treating Co mments Source Name Details Category Date Date Treatment Clinician Date Sciatica Sciatica, Problem Comm on unspecifie Spirit d side - [facility] [id number] Early Problem Common cirrhosis [facility] [id number] Anemia, Problem Commo n unspecifie Spirit d type - [facility] [id number] Hyperlipid Problem Com mon emia, Spirit unspecifie - [facility] d hyperlipid [facility] emia [facility] [id number] Neck pain Problem Comm on [facility] [id number] Gastroesop Problem Co mmon hageal [facility] reflux - [facility], [facility] Med[facility] l not Center specified [id number] Medication Problem Co mmon monitoring Spirit encounter [facility] [id number] Vitamin D Problem Comm on deficiency [facility] [id number] Polyp of Problem Commo n colon, Spirit unspecifie - [facility] d part of [facility] unspecifie Medica l d type Center [id number] Osteoporos Problem Com mon is without [facility] current - [facility] pathologic [facility] fracture, Medical unspecifie Center d osteoporos is type [id number] Right-side Problem Co mmon d headache [facility] [id number] Glaucoma Problem Commo n of both Spirit eyes, - [facility] unspecifie [facility] glaucoma [facility] [id number] History of Problem Co mmon peptic [facility] ulcer - [facility] disease [facility] [id number] Ulcerative Problem Com mon colitis [facility] without - [facility] complicati [facility] unspecifie Medica l d location Center [id number] History of Problem Co mmon uterine [facility] fibroid - [facility] Hearing Decreased 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 Social History Social Habit Start Date Stop Date Quantity Comments Source History of Tobacco [facility] Use [facility] Sex Assigned At 1945-08-131947-08-13 [facility] 00:00:00 00:00:00 MD [facility] Smoking Status Start Date Stop Date Source Tobacco [facility] Medications Ordered Filled Start Stop Current Ordering Indication Dosage Frequency Signature Comments Components Source Medication Medication Date Date Medication? Clinician (SIG) Name Name Clara Elizabeth 2020-07 No 40mg Common (Triamcinol (Triamcinol 2-21 S pirit one) one) 00:00: - [facility] Clara Elizabeth 2020-07 No 40mg Common (Triamcinol (Triamcinol 2-21 S pirit one) one) 00:00: - [facility] Clara Elizabeth 2020-07 No 40mg Common (Triamcinol (Triamcinol 2-21 S pirit one) one) 00:00: - [facility] Clara Elizabeth 2020-07 No 40mg Common (Triamcinol (Triamcinol 2-21 S pirit one) one) 00:00: - [facility] Clara Elizabeth 2020-07 No 40mg Common (Triamcinol (Triamcinol 2-21 S pirit one) one) 00:00: - [facility] Clara Elizabeth 2020-07 No 40mg Common (Triamcinol (Triamcinol 2-21 S pirit one) one) 00:00: - [facility] Clara Elizabeth 2020-07 No 40mg Common (Triamcinol (Triamcinol 2-21 S pirit one) one) 00:00: - [facility] Clara Elizabeth 2020-07 No 40mg Common (Triamcinol (Triamcinol 2-21 S pirit one) one) 00:00: - [facility] Clara Elizabeth 2020-07 No 40mg Common (Triamcinol (Triamcinol 2-21 S pirit one) one) 00:00: - [facility] Clara Elizabeth 2020-07 No 40mg Common (Triamcinol (Triamcinol 2-21 S pirit one) one) 00:00: - [facility] Fish Oil Fish Oil Yes Unique not Common Millender defined Spirit - [facility] Iron Iron Yes Unique not Common Millender defined Spirit [facility] Pravastatin Pravastatin Yes Unique 1 tablet Common Sodium Sodium Millender in evening Spirit [facility] Calcium Calcium Yes Unique not Common Citrate Citrate Millender defined S pirit Plus/Magnes Plus/Magnes - [facility] ium ium [facility] Vitamin D3 Vitamin D3 Yes Unique not Co mmon Millender defined Spirit [facility] Omeprazole Omeprazole Yes Unique 1 capsule Common Millender [facility] Latanoprost Latanoprost Yes Unique INSTILL 1 Common Millender DROP INTO Spiri t EACH EYE - [facility] AT BEDTIME [facility] Eye Eye No Eye Vitamins Vitamins Vitamins Vitamin D3 Vitamin D3 No Vitamin D3 Latanoprost Latanoprost No Latanopros 0.005 % 0.005 % t 0.005 % Calcium Calcium No Calcium Citrate Citrate Citrate Plus/Magnes Plus/Magnes Plus/Magne ium ium sium Pravastatin Pravastatin No QD Pravastati Sodium 40 Sodium 40 n Sodium MG MG 40 MG Fish Oil Fish Oil No Fish Oil Triamcinolo Triamcinolo No 1{appli BID Triamcinol ne ne cation_ one Acetonide Acetonide to_affe Acetonide 0.5 % 0.5 % cted_ar 0.5 % ea} Omeprazole Omeprazole No 1{capsu QD Omeprazole 20 MG 20 MG le} 20 MG Medrol 4 MG Medrol 4 MG No Medrol 4 MG Iron Iron No Iron Iron Iron No Iron Pravastatin Pravastatin No QD Pravastati Sodium 40 Sodium 40 n Sodium MG MG 40 MG Vitamin D3 Vitamin D3 No Vitamin D3 Fish Oil Fish Oil No Fish Oil Latanoprost Latanoprost No Latanopros 0.005 % 0.005 % t 0.005 % Omeprazole Omeprazole No 1{capsu QD Omeprazole 20 mg 20 mg le} 20 mg Calcium Calcium No Calcium Citrate Citrate Citrate Plus/Magnes Plus/Magnes Plus/Magne ium ium sium Iron Iron No Iron Pravastatin Pravastatin No QD Pravastati Sodium 40 Sodium 40 n Sodium MG MG 40 MG Latanoprost Latanoprost No Latanopros 0.005 % 0.005 % t 0.005 % Fish Oil Fish Oil No Fish Oil Omeprazole Omeprazole No 1{capsu QD Omeprazole 20 mg 20 mg le} 20 mg Vitamin D3 Vitamin D3 No Vitamin D3 Calcium Calcium No Calcium Citrate Citrate Citrate Plus/Magnes Plus/Magnes Plus/Magne ium ium sium Iron Iron No Iron Pravastatin Pravastatin No QD Pravastati Sodium 40 Sodium 40 n Sodium MG MG 40 MG Latanoprost Latanoprost No Latanopros 0.005 % 0.005 % t 0.005 % Fish Oil Fish Oil No Fish Oil Omeprazole Omeprazole No 1{capsu QD Omeprazole 20 mg 20 mg le} 20 mg Vitamin D3 Vitamin D3 No Vitamin D3 Calcium Calcium No Calcium Citrate Citrate Citrate Plus/Magnes Plus/Magnes Plus/Magne ium ium sium Iron Iron No Iron Pravastatin Pravastatin No QD Pravastati Sodium 40 Sodium 40 n Sodium MG MG 40 MG Latanoprost Latanoprost No Latanopros 0.005 % 0.005 % t 0.005 % Fish Oil Fish Oil No Fish Oil Omeprazole Omeprazole No 1{capsu QD Omeprazole 20 mg 20 mg le} 20 mg Vitamin D3 Vitamin D3 No Vitamin D3 Calcium Calcium No Calcium Citrate Citrate Citrate Plus/Magnes Plus/Magnes Plus/Magne ium ium sium Latanoprost Latanoprost No Latanopros 0.005 % 0.005 % t 0.005 % Vitamin D3 Vitamin D3 No Vitamin D3 Fish Oil Fish Oil No Fish Oil Calcium Calcium No Calcium Citrate Citrate Citrate Plus/Magnes Plus/Magnes Plus/Magne ium ium sium Omeprazole Omeprazole No 1{capsu QD Omeprazole 20 mg 20 mg le} 20 mg Iron Iron No Iron Pravastatin Pravastatin No QD Pravastati Sodium 40 Sodium 40 n Sodium MG MG 40 MG Latanoprost Latanoprost No Latanopros 0.005 % 0.005 % t 0.005 % Vitamin D3 Vitamin D3 No Vitamin D3 Fish Oil Fish Oil No Fish Oil Calcium Calcium No Calcium Citrate Citrate Citrate Plus/Magnes Plus/Magnes Plus/Magne ium ium sium Omeprazole Omeprazole No 1{capsu QD Omeprazole 20 mg 20 mg le} 20 mg Iron Iron No Iron Pravastatin Pravastatin No QD Pravastati Sodium 40 Sodium 40 n Sodium MG MG 40 MG Latanoprost Latanoprost No Latanopros 0.005 % 0.005 % t 0.005 % Vitamin D3 Vitamin D3 No Vitamin D3 Fish Oil Fish Oil No Fish Oil Calcium Calcium No Calcium Citrate Citrate Citrate Plus/Magnes Plus/Magnes Plus/Magne ium ium sium Omeprazole Omeprazole No 1{capsu QD Omeprazole 20 mg 20 mg le} 20 mg Iron Iron No Iron Pravastatin Pravastatin No QD Pravastati Sodium 40 Sodium 40 n Sodium MG MG 40 MG Latanoprost Latanoprost No Latanopros 0.005 % 0.005 % t 0.005 % Vitamin D3 Vitamin D3 No Vitamin D3 Fish Oil Fish Oil No Fish Oil Calcium Calcium No Calcium Citrate Citrate Citrate Plus/Magnes Plus/Magnes Plus/Magne ium ium sium Omeprazole Omeprazole No 1{capsu QD Omeprazole 20 mg 20 mg le} 20 mg Iron Iron No Iron Pravastatin Pravastatin No QD Pravastati Sodium 40 Sodium 40 n Sodium MG MG 40 MG Latanoprost Latanoprost No Latanopros 0.005 % 0.005 % t 0.005 % Fish Oil Fish Oil No Fish Oil Iron Iron No Iron Calcium Calcium No Calcium Citrate Citrate Citrate Plus/Magnes Plus/Magnes Plus/Magne ium ium sium Pravastatin Pravastatin No Pravastati Sodium 40 Sodium 40 n Sodium MG MG 40 MG Omeprazole Omeprazole No Omeprazole 20 MG 20 MG 20 MG Vitamin D3 Vitamin D3 No Vitamin D3 Latanoprost Latanoprost No Latanopros 0.005 % 0.005 % t 0.005 % Fish Oil Fish Oil No Fish Oil Iron Iron No Iron Calcium Calcium No Calcium Citrate Citrate Citrate Plus/Magnes Plus/Magnes Plus/Magne ium ium sium Pravastatin Pravastatin No Pravastati Sodium 40 Sodium 40 n Sodium MG MG 40 MG Omeprazole Omeprazole No Omeprazole 20 MG 20 MG 20 MG Vitamin D3 Vitamin D3 No Vitamin D3 Calcium Calcium No Calcium Citrate Citrate Citrate Plus/Magnes Plus/Magnes Plus/Magne ium ium sium Eye Eye No Eye Vitamins Vitamins Vitamins Vitamin D3 Vitamin D3 No Vitamin D3 Fish Oil Fish Oil No Fish Oil Medrol 4 MG Medrol 4 MG No Medrol 4 MG Omeprazole Omeprazole No Omeprazole 20 MG 20 MG 20 MG Latanoprost Latanoprost No Latanopros 0.005 % 0.005 % t 0.005 % Pravastatin Pravastatin No Pravastati Sodium 40 Sodium 40 n Sodium MG MG 40 MG Triamcinolo Triamcinolo No 1{appli BID Triamcinol ne ne cation_ one Acetonide Acetonide to_affe Acetonide 0.5 % 0.5 % cted_ar 0.5 % ea} Iron Iron No Iron Pravastatin Pravastatin No QD Pravastati Sodium 40 Sodium 40 n Sodium MG MG 40 MG Triamcinolo Triamcinolo No 1{appli BID Triamcinol ne ne cation_ one Acetonide Acetonide to_affe Acetonide 0.5 % 0.5 % cted_ar 0.5 % ea} Pravastatin Pravastatin No Pravastati Sodium 40 Sodium 40 n Sodium MG MG 40 MG Omeprazole Omeprazole No Omeprazole 20 MG 20 MG 20 MG Fish Oil Fish Oil No Fish Oil Iron Iron No Iron Eye Eye No Eye Vitamins Vitamins Vitamins Latanoprost Latanoprost No Latanopros 0.005 % 0.005 % t 0.005 % Medrol 4 MG Medrol 4 MG No Medrol 4 MG Omeprazole Omeprazole No 1{capsu QD Omeprazole 20 MG 20 MG le} 20 MG Calcium Calcium No Calcium Citrate Citrate Citrate Plus/Magnes Plus/Magnes Plus/Magne ium ium sium Vitamin D3 Vitamin D3 No Vitamin D3 Pravastatin Pravastatin No QD Pravastati Sodium 40 Sodium 40 n Sodium MG MG 40 MG Triamcinolo Triamcinolo No 1{appli BID Triamcinol ne ne cation_ one Acetonide Acetonide to_affe Acetonide 0.5 % 0.5 % cted_ar 0.5 % ea} Pravastatin Pravastatin No Pravastati Sodium 40 Sodium 40 n Sodium MG MG 40 MG Omeprazole Omeprazole No Omeprazole 20 MG 20 MG 20 MG Fish Oil Fish Oil No Fish Oil Iron Iron No Iron Eye Eye No Eye Vitamins Vitamins Vitamins Latanoprost Latanoprost No Latanopros 0.005 % 0.005 % t 0.005 % Medrol 4 MG Medrol 4 MG No Medrol 4 MG Omeprazole Omeprazole No 1{capsu QD Omeprazole 20 MG 20 MG le} 20 MG Calcium Calcium No Calcium Citrate Citrate Citrate Plus/Magnes Plus/Magnes Plus/Magne ium ium sium Vitamin D3 Vitamin D3 No Vitamin D3 Omeprazole Omeprazole No 1{capsu QD Omeprazole 20 MG 20 MG le} 20 MG Triamcinolo Triamcinolo No 1{appli BID Triamcinol ne ne cation_ one Acetonide Acetonide to_affe Acetonide 0.5 % 0.5 % cted_ar 0.5 % ea} Pravastatin Pravastatin No Pravastati Sodium 40 Sodium 40 n Sodium MG MG 40 MG Omeprazole Omeprazole No Omeprazole 20 MG 20 MG 20 MG Fish Oil Fish Oil No Fish Oil Iron Iron No Iron Eye Eye No Eye Vitamins Vitamins Vitamins Latanoprost Latanoprost No Latanopros 0.005 % 0.005 % t 0.005 % Medrol 4 MG Medrol 4 MG No Medrol 4 MG Pravastatin Pravastatin No QD Pravastati Sodium 40 Sodium 40 n Sodium MG MG 40 MG Calcium Calcium No Calcium Citrate Citrate Citrate Plus/Magnes Plus/Magnes Plus/Magne ium ium sium Vitamin D3 Vitamin D3 No Vitamin D3 Eye Eye No Eye Vitamins Vitamins Vitamins Vitamin D3 Vitamin D3 No Vitamin D3 Latanoprost Latanoprost No Latanopros 0.005 % 0.005 % t 0.005 % Calcium Calcium No Calcium Citrate Citrate Citrate Plus/Magnes Plus/Magnes Plus/Magne ium ium sium Pravastatin Pravastatin No QD Pravastati Sodium 40 Sodium 40 n Sodium MG MG 40 MG Fish Oil Fish Oil No Fish Oil Triamcinolo Triamcinolo No 1{appli BID Triamcinol ne ne cation_ one Acetonide Acetonide to_affe Acetonide 0.5 % 0.5 % cted_ar 0.5 % ea} Omeprazole Omeprazole No 1{capsu QD Omeprazole 20 MG 20 MG le} 20 MG Medrol 4 MG Medrol 4 MG No Medrol 4 MG Iron Iron No Iron Eye Eye No Eye Vitamins Vitamins Vitamins Vitamin D3 Vitamin D3 No Vitamin D3 Latanoprost Latanoprost No Latanopros 0.005 % 0.005 % t 0.005 % Calcium Calcium No Calcium Citrate Citrate Citrate Plus/Magnes Plus/Magnes Plus/Magne ium ium sium Pravastatin Pravastatin No QD Pravastati Sodium 40 Sodium 40 n Sodium MG MG 40 MG Fish Oil Fish Oil No Fish Oil Triamcinolo Triamcinolo No 1{appli BID Triamcinol ne ne cation_ one Acetonide Acetonide to_affe Acetonide 0.5 % 0.5 % cted_ar 0.5 % ea} Omeprazole Omeprazole No 1{capsu QD Omeprazole 20 MG 20 MG le} 20 MG Medrol 4 MG Medrol 4 MG No Medrol 4 MG Iron Iron No Iron Eye Eye No Eye Vitamins Vitamins Vitamins Vitamin D3 Vitamin D3 No Vitamin D3 Latanoprost Latanoprost No Latanopros 0.005 % 0.005 % t 0.005 % Calcium Calcium No Calcium Citrate Citrate Citrate Plus/Magnes Plus/Magnes Plus/Magne ium ium sium Pravastatin Pravastatin No QD Pravastati Sodium 40 Sodium 40 n Sodium MG MG 40 MG Fish Oil Fish Oil No Fish Oil Triamcinolo Triamcinolo No 1{appli BID Triamcinol ne ne cation_ one Acetonide Acetonide to_affe Acetonide 0.5 % 0.5 % cted_ar 0.5 % ea} Omeprazole Omeprazole No 1{capsu QD Omeprazole 20 MG 20 MG le} 20 MG Medrol 4 MG Medrol 4 MG No Medrol 4 MG Iron Iron No Iron Immunizations Ordered Filled Immunization Date Status Comments [facility] e Immunization Name Name Prevnar 20 (PCV20) Prevnar 20 (PCV20) 2021-11-11 Completed [facility] - 10:00:00 [facility] Prevnar 20 (PCV20) Prevnar 20 (PCV20) 2021-11-11 Completed [facility] - 10:00:00 [facility] Prevnar 20 (PCV20) Prevnar 20 (PCV20) 2021-11-11 Completed [facility] - 10:00:00 [facility] Prevnar 20 (PCV20) Prevnar 20 (PCV20) 2021-11-11 Completed [facility] - 10:00:00 [facility] Prevnar 20 (PCV20) Prevnar 20 (PCV20) 2021-11-11 Completed [facility] - 10:00:00 [facility] Prevnar 20 (PCV20) Prevnar 20 (PCV20) 2021-11-11 Completed [facility] - 10:00:00 [facility] Prevnar 20 (PCV20) Prevnar 20 (PCV20) 2021-11-11 Completed [facility] - 10:00:00 [facility] Prevnar 20 (PCV20) Prevnar 20 (PCV20) 2021-11-11 Completed [facility] - 10:00:00 [facility] FLUZONE HIGH DOSE FLUZONE HIGH DOSE 2021-05-13 Completed [facility] - OVER 65 OVER 65 11:54:00 [facility] FLUZONE HIGH DOSE FLUZONE HIGH DOSE 2021-05-13 Completed [facility] - OVER 65 OVER 65 11:54:00 [facility] FLUZONE HIGH DOSE FLUZONE HIGH DOSE 2021-05-13 Completed [facility] - OVER 65 OVER 65 11:54:00 [facility] FLUZONE HIGH DOSE FLUZONE HIGH DOSE 2021-05-13 Completed [facility] - OVER 65 OVER 65 11:54:00 [facility] FLUZONE HIGH DOSE FLUZONE HIGH DOSE 2021-05-13 Completed [facility] - OVER 65 OVER 65 11:54:00 [facility] FLUZONE HIGH DOSE FLUZONE HIGH DOSE 2021-05-13 Completed [facility] - OVER 65 OVER 65 11:54:00 [facility] FLUZONE HIGH DOSE FLUZONE HIGH DOSE 2021-05-13 Completed [facility] - OVER 65 OVER 65 11:54:00 [facility] FLUZONE HIGH DOSE FLUZONE HIGH DOSE 2021-05-13 Completed [facility] - OVER 65 OVER 65 11:54:00 [facility] FLUZONE HIGH DOSE FLUZONE HIGH DOSE 2021-05-13 Completed [facility] - OVER 65 OVER 65 11:54:00 [facility] FLUZONE HIGH DOSE FLUZONE HIGH DOSE 2021-05-13 Completed [facility] - OVER 65 OVER 65 11:54:00 [facility] FLUZONE HIGH DOSE FLUZONE HIGH DOSE 2021-05-13 Completed [facility] - OVER 65 OVER 65 11:54:00 [facility] FLUZONE HIGH DOSE FLUZONE HIGH DOSE 2021-05-13 Completed [facility] - OVER 65 OVER 65 11:54:00 [facility] FLUZONE HIGH DOSE FLUZONE HIGH DOSE 2021-05-13 Completed [facility] - OVER 65 OVER 65 11:54:00 [facility] FLUZONE HIGH DOSE FLUZONE HIGH DOSE 2021-05-13 Completed [facility] - OVER 65 OVER 65 11:54:00 [facility] FLUZONE HIGH DOSE FLUZONE HIGH DOSE 2021-05-13 Completed [facility] - OVER 65 OVER 65 11:54:00 [facility] FLUZONE HIGH DOSE FLUZONE HIGH DOSE 2021-05-13 Completed [facility] - OVER 65 OVER 65 11:54:00 [facility] FLUZONE HIGH DOSE FLUZONE HIGH DOSE 2021-05-13 Completed [facility] - OVER 65 OVER 65 11:54:00 [facility] Pfizer COVID-19 Pfizer COVID-19 2021-03-27 Completed [facility] - Vaccine Vaccine 11:54:00 [facility] Pfizer COVID-19 Pfizer COVID-19 2021-03-27 Completed [facility] - Vaccine Vaccine 11:54:00 [facility] Pfizer COVID-19 Pfizer COVID-19 2021-03-27 Completed [facility] - Vaccine Vaccine 11:54:00 [facility] Pfizer COVID-19 Pfizer COVID-19 2021-03-27 Completed [facility] - Vaccine Vaccine 11:54:00 [facility] Pfizer COVID-19 Pfizer COVID-19 2021-03-27 Completed [facility] - Vaccine Vaccine 11:54:00 [facility] Pfizer COVID-19 Pfizer COVID-19 2021-03-27 Completed [facility] - Vaccine Vaccine 11:54:00 [facility] Pfizer COVID-19 Pfizer COVID-19 2021-03-27 Completed [facility] - Vaccine Vaccine 11:54:00 [facility] Pfizer COVID-19 Pfizer COVID-19 2021-03-27 Completed [facility] - Vaccine Vaccine 11:54:00 [facility] Pfizer COVID-19 Pfizer COVID-19 2021-03-27 Completed [facility] - Vaccine Vaccine 11:54:00 [facility] Pfizer COVID-19 Pfizer COVID-19 2021-03-27 Completed [facility] - Vaccine Vaccine 11:54:00 [facility] Pfizer COVID-19 Pfizer COVID-19 2021-03-27 Completed [facility] - Vaccine Vaccine 11:54:00 [facility] Pfizer COVID-19 Pfizer COVID-19 2021-03-27 Completed [facility] - Vaccine Vaccine 11:54:00 [facility] Pfizer COVID-19 Pfizer COVID-19 2021-03-27 Completed [facility] - Vaccine Vaccine 11:54:00 [facility] Pfizer COVID-19 Pfizer COVID-19 2021-03-27 Completed [facility] - Vaccine Vaccine 11:54:00 [facility] Pfizer COVID-19 Pfizer COVID-19 2021-03-27 Completed [facility] - Vaccine Vaccine 11:54:00 [facility] Pfizer COVID-19 Pfizer COVID-19 2021-03-27 Completed [facility] - Vaccine Vaccine 11:54:00 [facility] Pfizer COVID-19 Pfizer COVID-19 2021-03-27 Completed [facility] - Vaccine Vaccine 11:54:00 [facility] Pfizer SARS-CoV-2 2021-03-27 Completed Univer sity of Vaccination (Purple 00:00:00 [facility] Pfizer COVID-19 Pfizer COVID-19 2020-09-21 Completed [facility] - Vaccine Vaccine 11:53:00 [facility] Pfizer COVID-19 Pfizer COVID-19 2020-09-21 Completed [facility] - Vaccine Vaccine 11:53:00 [facility] Pfizer COVID-19 Pfizer COVID-19 2020-09-21 Completed [facility] - Vaccine Vaccine 11:53:00 [facility] Pfizer COVID-19 Pfizer COVID-19 2020-09-21 Completed [facility] - Vaccine Vaccine 11:53:00 [facility] Pfizer COVID-19 Pfizer COVID-19 2020-09-21 Completed [facility] - Vaccine Vaccine 11:53:00 [facility] Pfizer COVID-19 Pfizer COVID-19 2020-09-21 Completed [facility] - Vaccine Vaccine 11:53:00 [facility] Pfizer COVID-19 Pfizer COVID-19 2020-09-21 Completed [facility] - Vaccine Vaccine 11:53:00 [facility] Pfizer COVID-19 Pfizer COVID-19 2020-09-21 Completed [facility] - Vaccine Vaccine 11:53:00 [facility] Pfizer COVID-19 Pfizer COVID-19 2020-09-21 Completed [facility] - Vaccine Vaccine 11:53:00 [facility] Pfizer COVID-19 Pfizer COVID-19 2020-09-21 Completed [facility] - Vaccine Vaccine 11:53:00 [facility] Pfizer COVID-19 Pfizer COVID-19 2020-09-21 Completed [facility] - Vaccine Vaccine 11:53:00 [facility] Pfizer COVID-19 Pfizer COVID-19 2020-09-21 Completed [facility] - Vaccine Vaccine 11:53:00 [facility] Pfizer COVID-19 Pfizer COVID-19 2020-09-21 Completed [facility] - Vaccine Vaccine 11:53:00 [facility] Pfizer COVID-19 Pfizer COVID-19 2020-09-21 Completed [facility] - Vaccine Vaccine 11:53:00 [facility] Pfizer COVID-19 Pfizer COVID-19 2020-09-21 Completed [facility] - Vaccine Vaccine 11:53:00 [facility] Pfizer COVID-19 Pfizer COVID-19 2020-09-21 Completed [facility] - Vaccine Vaccine 11:53:00 [facility] Pfizer COVID-19 Pfizer COVID-19 2020-09-21 Completed [facility] - Vaccine Vaccine 11:53:00 [facility] Pfizer COVID-19 Pfizer COVID-19 2020-08-21 Completed [facility] - Vaccine Vaccine 11:53:00 [facility] Pfizer COVID-19 Pfizer COVID-19 2020-08-21 Completed [facility] - Vaccine Vaccine 11:53:00 [facility] Pfizer COVID-19 Pfizer COVID-19 2020-08-21 Completed [facility] - Vaccine Vaccine 11:53:00 [facility] Pfizer COVID-19 Pfizer COVID-19 2020-08-21 Completed [facility] - Vaccine Vaccine 11:53:00 [facility] Pfizer COVID-19 Pfizer COVID-19 2020-08-21 Completed [facility] - Vaccine Vaccine 11:53:00 [facility] Pfizer COVID-19 Pfizer COVID-19 2020-08-21 Completed [facility] - Vaccine Vaccine 11:53:00 [facility] Pfizer COVID-19 Pfizer COVID-19 2020-08-21 Completed [facility] - Vaccine Vaccine 11:53:00 [facility] Pfizer COVID-19 Pfizer COVID-19 2020-08-21 Completed [facility] - Vaccine Vaccine 11:53:00 [facility] Pfizer COVID-19 Pfizer COVID-19 2020-08-21 Completed [facility] - Vaccine Vaccine 11:53:00 [facility] Pfizer COVID-19 Pfizer COVID-19 2020-08-21 Completed [facility] - Vaccine Vaccine 11:53:00 [facility] Pfizer COVID-19 Pfizer COVID-19 2020-08-21 Completed [facility] - Vaccine Vaccine 11:53:00 [facility] Pfizer COVID-19 Pfizer COVID-19 2020-08-21 Completed [facility] - Vaccine Vaccine 11:53:00 [facility] Pfizer COVID-19 Pfizer COVID-19 2020-08-21 Completed [facility] - Vaccine Vaccine 11:53:00 [facility] Pfizer COVID-19 Pfizer COVID-19 2020-08-21 Completed [facility] - Vaccine Vaccine 11:53:00 [facility] Pfizer COVID-19 Pfizer COVID-19 2020-08-21 Completed [facility] - Vaccine Vaccine 11:53:00 [facility] Pfizer COVID-19 Pfizer COVID-19 2020-08-21 Completed [facility] - Vaccine Vaccine 11:53:00 [facility] Pfizer COVID-19 Pfizer COVID-19 2020-08-21 Completed [facility] - Vaccine Vaccine 11:53:00 [facility] Vital Signs Vital Name Observation Time Observation Value Comments Source height 2022-03-29 08:40:00 58.0 [in_i] [facility] weight 2022-03-29 08:40:00 109.2 [lb_av] Common [facility] temperature 2022-03-29 08:40:00 97.2 [degF] [facility] bmi 2022-03-29 08:40:00 22.82 kg/m2 Common S [facility] oximetry 2022-03-29 08:40:00 96 % [facility] respiratory rate 2022-03-29 08:40:00 15 /min Comm on [facility] blood pressure 2022-03-29 08:40:00 116 mm[Hg] Common [facility] - systolic [facility] blood pressure 2022-03-29 08:40:00 56 mm[Hg] Common [facility] - diastolic [facility] bmi 2022-03-29 08:00:00 22.82 kg/m2 [facility] oximetry 2022-03-29 08:00:00 96 % [facility] respiratory rate 2022-03-29 08:00:00 15 /min Comm on [facility] blood pressure 2022-03-29 08:00:00 116 mm[Hg] Common [facility] - systolic [facility] blood pressure 2022-03-29 08:00:00 56 mm[Hg] Common [facility] - diastolic [facility] height 2022-03-29 08:00:00 58.0 [in_i] Common [facility] weight 2022-03-29 08:00:00 109.2 [lb_av] [facility] [place] temperature 2022-03-29 08:00:00 97.2 [degF] [facility] height 2021-12-31 10:40:00 58.0 [in_i] [facility] weight 2021-12-31 10:40:00 114.0 [lb_av] [facility] [place] temperature 2021-12-31 10:40:00 97.1 [degF] [facility] bmi 2021-12-31 10:40:00 23.82 kg/m2 Common S pirit [facility] oximetry 2021-12-31 10:40:00 95 % [facility] respiratory rate 2021-12-31 10:40:00 15 /min Comm on [facility] blood pressure 2021-12-31 10:40:00 111 mm[Hg] [facility] blood pressure 2021-12-31 10:40:00 56 mm[Hg] [facility] height 2021-11-11 09:40:00 58.0 [in_i] Common S pirit [facility] weight 2021-11-11 09:40:00 116.6 [lb_av] [facility] [place] temperature 2021-11-11 09:40:00 97.2 [degF] Common S pirit [facility] bmi 2021-11-11 09:40:00 24.37 kg/m2 Common S pirit [facility] oximetry 2021-11-11 09:40:00 98 % Common S pirit [facility] respiratory rate 2021-11-11 09:40:00 17 /min Comm on [facility] blood pressure 2021-11-11 09:40:00 118 mm[Hg] Common [facility] - systolic [facility] blood pressure 2021-11-11 09:40:00 58 mm[Hg] Common [facility] - diastolic [facility] height 2021-06-29 13:20:00 58.0 [in_i] Common S pirit [facility] weight 2021-06-29 13:20:00 116 [lb_av] Common S pirit [facility] temperature 2021-06-29 13:20:00 97 [degF] Common S pirit [facility] bmi 2021-06-29 13:20:00 24.24 kg/m2 Common S pirit [facility] oximetry 2021-06-29 13:20:00 98 % Common S pirit [facility] blood pressure 2021-06-29 13:20:00 124 mm[Hg] [facility] blood pressure 2021-06-29 13:20:00 57 mm[Hg] [facility] height 2021-05-13 11:00:00 58.0 [in_i] [facility] weight 2021-05-13 11:00:00 115.8 [lb_av] Common [facility] temperature 2021-05-13 11:00:00 96.8 [degF] Common S pirit [facility] bmi 2021-05-13 11:00:00 24.2 kg/m2 Common S [facility] oximetry 2021-05-13 11:00:00 98 % Common S [facility] respiratory rate 2021-05-13 11:00:00 18 /min Comm on [facility] blood pressure 2021-05-13 11:00:00 100 mm[Hg] [facility] blood pressure 2021-05-13 11:00:00 60 mm[Hg] Common [facility] - diastolic [facility] height 2021-05-13 11:40:00 58.0 [in_i] Common S [facility] weight 2021-05-13 11:40:00 115.8 [lb_av] Common [facility] temperature 2021-05-13 11:40:00 96.8 [degF] Common S pirit [facility] bmi 2021-05-13 11:40:00 24.20 kg/m2 Common S [facility] oximetry 2021-05-13 11:40:00 98 % Common [facility] respiratory rate 2021-05-13 11:40:00 18 /min Comm on [facility] blood pressure 2021-05-13 11:40:00 100 mm[Hg] [facility] blood pressure 2021-05-13 11:40:00 60 mm[Hg] Common [facility] Procedures This patient has no known procedures. Plan of Care Planned Activity Planned Date Details Comments Source Future Scheduled 2022-05-07 COVID-19 Vaccination Uni [facility] Test 13:49:55 (4 - Booster for MD [facility] Pfizer series) [code Center = COVID-19 Vaccination (4 - Booster for Pfizer series)] Encounters Start End Encounter Admission Attending Care Care Encounter Source Date/Time Date/Time Type Type Clinicians Facility Department ID 2022-04-04 Outpatient [facility] [id number] [place] 16:28:47 [id number] [facility] 2022-03-29 Outpatient Pineda, Na STLMLC STLMLC [id number] 2 Common 14:25:00 [facility] 2022-03-25 Outpatient Pineda, Na STLMLC STLMLC [id number] 2 Common 09:52:00 [facility] 2022-02-24 Outpatient [facility] [id number] [place] 16:05:20 [id number] [facility] 2021-12-29 Outpatient Pineda, Na STLMLC STLMLC [id number] 2 Common 10:48:00 [facility] 2021-11-09 Outpatient Pineda, Na STLMLC STLMLC [id number] 2 Common 13:43:00 [facility] 2021-08-04 Outpatient Pineda, Na STLMLC STLMLC [id number] 2 Common 14:39:17 [facility] 2021-08-04 Outpatient Pineda, Na STLMLC STLMLC [id number] 2 Common 14:07:39 [id number] [facility] 2021-08-04 Outpatient Pineda, Na STLMLC STLMLC [id number] 2 Common 12:51:18 [id number] [facility] 2021-08-04 Outpatient Pineda, Na STLMLC STLMLC [id number] 2 Common 12:46:26 [id number] [facility] 2021-08-04 Outpatient Pineda, Na STLMLC STLMLC [id number] 2 Common 12:45:49 [id number] [facility] 2021-08-04 Outpatient Pineda, Na STLMLC STLMLC [id number] 2 Common 12:44:39 [id number] [facility] 2021-08-04 Outpatient Pineda, Na STLMLC STLMLC [id number] 2 Common 12:44:20 [id number] [facility] 2021-08-04 Outpatient Pineda, Na STLMLC STLMLC [id number] 2 Common 12:40:54 [id number] [facility] 2021-08-04 Outpatient Pineda, Na STLMLC STLMLC [id number] 2 Common 12:23:51 [id number] [facility] 2021-08-04 Outpatient Millender, STLMLC STLMLC [id number] Common 11:47:19 Unique [id number] [facility] 2021-08-04 Outpatient Millender, STLMLC STLMLC [id number] Common 11:41:03 Unique [id number] [facility] 2021-08-04 Outpatient Millender, STLMLC STLMLC [id number] Common 11:40:51 Unique [id number] [facility] 2021-08-04 Outpatient Millender, STLMLC STLMLC [id number] Common 11:40:16 Unique [id number] [facility] 2021-08-04 Outpatient Millender, STLMLC STLMLC [id number] Common 11:31:42 Unique [id number] [facility] 2021-08-04 Outpatient Millender, STLMLC STLMLC [id number] Common 11:15:26 Unique [id number] [facility] 2022-04-07 2022-04-07 Outpatient CHOUDHARY, [address] 10:41:00 23:59:00 UTE 2022-04-07 2022-04-07 Office Choudhary, EXT NDRDP [id number] [place] 11:00:00 11:30:00 Visit Ute LOCATION [id number] H [facility] [id number] 2022-03-29 2022-03-29 OFFICE STLMLC STLMLC [id number] Co mmon 00:00:00 00:00:00 VISIT EST Spir it PT LEVEL 3 - [facility] 2022-03-29 2022-03-29 SUB ANNUAL STLMLC STLMLC [id number] Common 00:00:00 00:00:00 MCR [facility] VISIT [facility] 2022-03-18 2022-03-18 (TEL) STLMLC STLMLC [id number] Co mmon 00:00:00 00:00:00 [facility] 2022-01-19 2022-01-19 (TEL) STLMLC STLMLC [id number] Co mmon 00:00:00 00:00:00 [facility] 2021-12-31 2021-12-31 OFFICE STLMLC STLMLC [id number] Co mmon 00:00:00 00:00:00 VISIT Spirit [facility] PT - CHI LEVEL 4 [facility] 2021-11-11 2021-11-11 OFFICE STLMLC STLMLC [id number] Co mmon 00:00:00 00:00:00 VISIT EST Spir it PT LEVEL 3 - [facility] 2021-11-01 2021-11-01 (TEL) STLMLC STLMLC [id number] Co mmon 00:00:00 00:00:00 [facility] 2021-09-10 2021-09-10 (TEL) STLMLC STLMLC [id number] Co mmon 00:00:00 00:00:00 [facility] 2021-07-13 2021-07-13 (TEL) STLMLC STLMLC [id number] Co mmon 00:00:00 00:00:00 [facility] 2021-06-29 2021-06-29 (TEL) STLMLC STLMLC [id number] Co mmon 00:00:00 00:00:00 [facility] 2021-06-29 2021-06-29 (TEL) STLMLC STLMLC [id number] Co mmon 00:00:00 00:00:00 [facility] 2021-06-29 2021-06-29 OFFICE STLMLC STLMLC [id number] Co mmon 00:00:00 00:00:00 VISIT EST Spir it PT LEVEL 3 - [facility] 2021-06-28 2021-06-28 (TEL) STLMLC STLMLC [id number] Co mmon 00:00:00 00:00:00 [facility] 2021-05-13 2021-05-13 SUB ANNUAL STLMLC STLMLC [id number] Common 00:00:00 00:00:00 MCR [facility] VISIT [facility] 2021-05-13 2021-05-13 OFFICE STLMLC STLMLC [id number] Co mmon 00:00:00 00:00:00 VISIT EST Spir it PT LEVEL 3 [facility] 2021-04-23 2021-04-23 (TEL) STLMLC STLMLC [id number] Co mmon 00:00:00 00:00:00 [facility] 2021-04-02 2021-04-02 Outpatient STLMLC STLMLC [id number] Common 00:00:00 00:00:00 [facility] 2021-03-27 2021-03-27 Outpatient EL MDA MDA [id number] MD 10:59:01 10:59:01 Matheus o n 2020-10-22 2020-10-22 Outpatient STLMLC STLMLC [id number] Common 00:00:00 00:00:00 [facility] 2020-10-21 2020-10-21 Outpatient STLMLC STLMLC [id number] Common 00:00:00 00:00:00 [facility] 2020-10-02 2020-10-02 Outpatient STLMLC STLMLC [id number] Common 00:00:00 00:00:00 [facility] 2020-08-17 2020-08-17 Outpatient STLMLC STLMLC [id number] Common 00:00:00 00:00:00 [facility] 2020-04-08 2020-04-08 Outpatient STLMLC STLMLC [id number] Common 00:00:00 00:00:00 [facility] 2020-04-06 2020-04-06 Outpatient STLMLC STLMLC [id number] Common 00:00:00 00:00:00 [facility] 2020-03-04 2020-03-04 [facility] [id number] Common 08:40:00 08:40:00 t [facility] [address] [facility] 2019-09-02 2019-09-02 [facility] [id number] Common 21:43:00 21:43:00 t [facility] [address] [facility] 2019-08-14 2019-08-14 [facility] [id number] Common 09:00:00 09:00:00 [facility] it Road [facility] 2019-02-28 2019-02-28 [facility] [id number] 08:06:00 10:30:00 Encounter Mohamud Jackson [id number] Tomime Nicole [id number] Surgical [id number] [place] [id number] 2019-02-07 2019-02-07 [facility] [id number] 08:18:00 11:09:00 Encounter Mohamud Jackson [id number] Tommie Nicole [id number] Surgical [id number] [place] [id number] 2019-02-07 2019-02-07 Orders Doctor HOGAN [id number] 00:00:00 00:00:00 Only Unassigned, ADRIANE [id number] Chiawuli Tak [facility] [id number] Results This patient has no known results.
[2022-05-18] MEDS ORDERED: MORPHINE 2 MG/ML SYR ONE (10:10)
[2022-05-18] MEDS ORDERED: ONDANSETRON 4 MG/2 ML VIAL ONE (10:10)
[2022-05-18 10:21] LABS: Absolute Lymphocytes (CBC) 0.8 K/uL (0.7-4.9); Hematocrit 42.6 % (36.0-45.0); Lymphocytes % 8.3 % (15.3-44.8); MCV 92.7 fL (80-100); MPV 7.4 fL (7.6-11.3)
[2022-05-18 10:38] LABS: Potassium 3.6 mmol/L (3.5-5.1)
--- NOTE | 2022-05-18 11:43 | RAD REPORT ---
EXAM DESCRIPTION: CT - Head C Spine Cap W Con - 05/18/2022 11:18 am CLINICAL HISTORY: Trauma, head and neck injury. Chest, abdomen and pelvis pain. Head injury and right flank pain COMPARISON: Abdomen Pelvis W Contrast dated 11/20/2018 TECHNIQUE: CT head without contrast. CT cervical spine without contrast with coronal and sagittal reformatted images. CT chest, abdomen and pelvis with coronal and sagittal reformatted images of the spine. All CT scans are performed using dose optimization technique as appropriate and may include automated exposure control or mA/KV adjustment according to patient size. FINDINGS: CT HEAD WITHOUT CONTRAST: Dural-based mass along the left frontal lobe measuring 3.8 x 1.5 cm having some peripheral calcificat ion. No acute intracranial hemorrhage. No midline shift. No acute large vascular territory infarct. The paranasal sinuses and mastoids are clear. The calvarium is intact. CT CERVICAL SPINE WITHOUT CONTRAST: No acute fracture of cervical spine. Retrolisthesis of C4 on C5 is noted. Mild bilateral neural arturo inal narrowing. The prevertebral soft tissues are normal in thickness. CT CHEST, ABDOMEN, PELVIS: Thorax: Chest Wall: Small nonspecific thyroid nodules. Lungs: No acute abnormality. Pleura: No effusions or pneumothorax. Streak artifact from contrast in the SVC simulates the presence of a small right medial pneumothorax. Adriana/Mediastinum: No lymphadenopathy. Aorta/Pulmonary Arteries: Unremarkable Heart: Normal size. Abdomen/Pelvis: Liver: Hepatic steatosis. Biliary: No biliary ductal dilatation. Stomach: No significant focal abnormality. Duodenum: No significant focal abnormality. Pancreas: No significant abnormality. Spleen: No significant abnormality. Adrenal: No suspicious lesions. Kidney/ureter: No hydronephrosis. No renal calculi. Too small to characterize and/or benign appearing renal lesions are noted. Retroperitoneum: No retroperitoneal adenopathy. Vascular: No aneurysm. Bowel: No significant focal abnormality. Normal appendix. Peritoneum: No ascites or free air. Bladder: Grossly unremarkable. Reproductive: Uterine fibroids. Bones: L1 compression fracture which appears acute or subacute and has approximate 20% loss of height . Minimal bony retropulsion. Other: n/a IMPRESSION: 1. No acute intracranial abnormality. No skull fracture. Dural-based mass along the left frontal lobe most likely representing a meningioma. Recommend nonemergent MRI with without contrast further evaluation. 2. No acute fracture traumatic or malalignment of the cervical spine. 3. Probably acute or subacute L1 compression fracture with approximately 20% loss of height anteriorl y. Minimal bony retropulsion.
--- NOTE | 2022-05-18 12:14 | ER ---
Nurse's Notes [facility] Name: Alexis Boothe Age: 76 yrs Sex: Female : 1945 Arrival Date: 05/18/2022 Time: 09:32 Bed 14 Private MD: Diagnosis: Unspecified injury of head, initial encounter;Right occipital hematoma;Fracture of first lumbar vertebra Presentation: 05/18 09:55 Chief complaint: Patient states: back pain since a fall this morning. Hit right side of ko1 head on door, large knot on right side of head. Coronavirus screen: At this time, the client does not indicate any symptoms associated with coronavirus-19. Ebola Screen: No symptoms or risks identified at this time. Initial Sepsis Screen: Does the patient meet any 2 criteria? No. Patient's initial sepsis screen is negative. Does the patient have a suspected source of infection? No. Patient's initial sepsis screen is negative. Risk Assessment: Do you want to hurt yourself or someone else? Patient reports no desire to harm self or others. Onset of symptoms was May 18, 2022 at 09:00. 09:55 Method Of Arrival: Wheelchair ko1 09:55 Acuity: KAI 2 ko1 Triage Assessment: 09:59 General: Appears in no apparent distress. uncomfortable, Behavior is calm, cooperative, ko1 appropriate for age. Pain: Complains of pain in right temporal area. Musculoskeletal: Circulation, motion, and sensation intact. Capillary refill is brisk, Range of motion: intact in all extremities. Historical: - Allergies: 09:59 Sulfa (Sulfonamide Antibiotics); ko1 - Immunization history:: Adult Immunizations unknown. - Social history:: Smoking status: Patient denies any tobacco usage or history of. Screenin:00 Abuse screen: Denies threats or abuse. Denies injuries from another. Nutritional ko1 screening: No deficits noted. Tuberculosis screening: No symptoms or risk factors identified. Fall Risk Fall in past 12 months (25 points). IV access (20 points). Assessment: 10:00 General: Appears in no apparent distress. uncomfortable, Behavior is calm, cooperative, ko1 appropriate for age. Pain: Complains of pain in lumbar area, left low back and right low back and scalp and right temporal area. Neuro: No deficits noted. Neuro: Level of Consciousness is awake, alert, obeys commands, Oriented to person, place, time, situation, Appropriate for age Speech is normal, Pupils are PERRLA, Pupil Size: 3mm. Cardiovascular: No deficits noted. Respiratory: No deficits noted. GI: No deficits noted. : No deficits noted. EENT: No deficits noted. Derm: No deficits noted. Musculoskeletal: No deficits noted. Vital Signs: 09:55 BP 136 / 58; Pulse 65; Resp 18; Temp 98.1(O); Pulse Ox 99% on R/A; Weight 45.36 kg; ko1 Height 4 ft. 11 in. (149.86 cm); Pain 5/10; 10:49 BP 128 / 65; Pulse 69; Pulse Ox 97% on R/A; ko1 11:36 BP 127 / 63; Pulse 72; Pulse Ox 95% on R/A; ko1 12:29 BP 117 / 50; Pulse 87; Resp 16; Pulse Ox 98% on R/A; ko1 09:55 Body Mass Index 20.20 (45.36 kg, 149.86 cm) ko1 ED Course: 09:32 Patient arrived in ED. as 09:32 Karri Brian MD is Attending Physician. kdr 09:54 Yenifer Donovan, LEONEL is Primary Nurse. ko1 09:59 Triage completed. ko1 09:59 Arm band placed on right wrist. ko1 10:00 Patient has correct armband on for positive identification. Allergy band placed. Fall ko1 risk band placed. Placed in gown. Bed in low position. Call light in reach. Side rails up X 1. Adult w/ patient. Client placed on continuous cardiac and pulse oximetry monitoring. NIBP monitoring applied. hall monitor on. Door closed. Noise minimized. Lights dimmed. Warm blanket given. 10:15 Initial lab(s) drawn, by me, sent to lab. Inserted saline lock: 20 gauge in right jw7 antecubital area, using aseptic technique. Blood collected. 10:16 Chem 7 Sent. jw7 10:16 CBC with Diff Sent. jw7 11:20 CT Traumagram (Head C Spine CAP W Con) In Process Unspecified. EDMS 12:30 No provider procedures requiring assistance completed. IV discontinued, intact, ko1 bleeding controlled, No redness/swelling at site. Pressure dressing applied. Administered Medications: 10:17 Drug: morphine 2 mg Route: IVP; Infused Over: 4 mins; Site: right antecubital; ko1 10:45 Follow up: Response: No adverse reaction; Pain is decreased; RASS: Alert and Calm (0) ko1 10:17 Drug: Zofran (Ondansetron) 4 mg Route: IVP; Site: right antecubital; ko1 10:45 Follow up: Response: No adverse reaction ko1 Medication: 12:29 VIS not applicable for this client. ko1 Outcome: 12:14 Discharge ordered by . kdr 12:30 Discharged to home via wheelchair, with family. ko1 12:30 Condition: stable 12:30 Discharge instructions given to patient, family, Instructed on discharge instructions, follow up and referral plans. medication usage, Demonstrated understanding of instructions, follow-up care, medications, Prescriptions given X 1. 12:47 Patient left the ED. ko1 Signatures: Dispatcher [employer] EDMS Krari Brian MD MD kdr Martinez, Amelia as Waits, Jodi jw7 Yenifer Donovan, RN RN ko1
--- NOTE | 2022-05-18 12:14 | EDPHYS ---
Physician Documentation [facility] Name: Alexis Boothe Age: 76 yrs Sex: Female : 1945 Arrival Date: 05/18/2022 Time: 09:32 Bed 14 Private MD: ED Physician Karri Brian HPI: 05/18 11:06 This 76 yrs old Female presents to ER via Wheelchair with complaints of Back Pain.kdr 11:06 The patient and her states that she tripped and fell prior to arrival. Had kdr about 1030 this morning. She has not had any issues like this before. She denies syncope or any other associated event. She fell and hit her head and right flank on the ground. She now has a large hematoma in the right occipital area and discomfort to the right flank. She denies any other injury. She is otherwise in her usual state of health. Patient does not appear to be in any acute distress at this time.. Onset: The symptoms/episode began/occurred acutely, gradually, just prior to arrival. Severity of symptoms: At their worst the symptoms were mild in the emergency department the symptoms are unchanged. The patient has not experienced similar symptoms in the past. The patient has not recently seen a physician. Historical: - Allergies: 09:59 Sulfa (Sulfonamide Antibiotics); ko1 - Immunization history:: Adult Immunizations unknown. - Social history:: Smoking status: Patient denies any tobacco usage or history of. ROS: 11:06 Constitutional: Negative for fever, chills, and weight loss, Eyes: Negative for injury, kdr pain, redness, and discharge, Neck: Negative for injury, pain, and swelling, Cardiovascular: Negative for chest pain, palpitations, and edema. Exam: 13:25 Constitutional: This is a well developed, well nourished patient who is awake, alert, kdr and in no acute distress. Head/Face: Normocephalic, atraumatic. Eyes: Pupils equal round and reactive to light, extra-ocular motions intact. Lids and lashes normal. Conjunctiva and sclera are non-icteric and not injected. Cornea within normal limits. Periorbital areas with no swelling, redness, or edema. Neck: Trachea midline, no thyromegaly or masses palpated, and no cervical lymphadenopathy. Supple, full range of motion without nuchal rigidity, or vertebral point tenderness. No Meningismus. Chest/axilla: Normal chest wall appearance and motion. Nontender with no deformity. No lesions are appreciated. Cardiovascular: Regular rate and rhythm with a normal S1 and S2. No gallops, murmurs, or rubs. Normal PMI, no JVD. No pulse deficits. Respiratory: Lungs have equal breath sounds bilaterally, clear to auscultation and percussion. No rales, rhonchi or wheezes noted. No increased work of breathing, no retractions or nasal flaring. Abdomen/GI: Soft, non-tender, with normal bowel sounds. No distension or tympany. No guarding or rebound. No evidence of tenderness throughout. Skin: Warm, dry with normal turgor. Normal color with no rashes, no lesions, and no evidence of cellulitis. MS/ Extremity: Pulses equal, no cyanosis. Neurovascular intact. Full, normal range of motion. Neuro: Awake and alert, GCS 15, oriented to person, place, time, and situation. Cranial nerves II-XII grossly intact. Motor strength 5/5 in all extremities. Sensory grossly intact. Cerebellar exam normal. Normal gait. Psych: Awake, alert, with orientation to person, place and time. Behavior, mood, and affect are within normal limits. 13:25 Back: pain, that is mild, that is moderate, of the lumbar area, ROM is painful, with all movement, normal spinal alignment noted, CVA tenderness, is absent, vertebral tenderness, is appreciated at T11, T12, L1 and L2. Vital Signs: 09:55 BP 136 / 58; Pulse 65; Resp 18; Temp 98.1(O); Pulse Ox 99% on R/A; Weight 45.36 kg; ko1 Height 4 ft. 11 in. (149.86 cm); Pain 5/10; 10:49 BP 128 / 65; Pulse 69; Pulse Ox 97% on R/A; ko1 11:36 BP 127 / 63; Pulse 72; Pulse Ox 95% on R/A; ko1 12:29 BP 117 / 50; Pulse 87; Resp 16; Pulse Ox 98% on R/A; ko1 09:55 Body Mass Index 20.20 (45.36 kg, 149.86 cm) ko1 MDM: 12:14 Patient medically screened. kdr 13:25 Data reviewed: vital signs, nurses notes, lab test result(s), radiologic studies. kdr Counseling: I had a detailed discussion with the patient and/or guardian regarding: the historical points, exam findings, and any diagnostic results supporting the discharge/admit diagnosis, lab results, radiology results, the need for outpatient follow up. 05/18 10:01 Order name: CBC with Diff; Complete Time: 10:50 kdr 05/18 10: Order name: Chem 7; Complete Time: 10:50 kdr 05/18 10: Order name: CT Traumagram (Head C Spine CAP W Con); Complete Time: 12:09 kdr 05/18 10:01 Order name: Urine Dipstick-Ancillary (obtain specimen) kdr Administered Medications: 10:17 Drug: morphine 2 mg Route: IVP; Infused Over: 4 mins; Site: right antecubital; ko1 10:45 Follow up: Response: No adverse reaction; Pain is decreased; RASS: Alert and Calm (0) ko1 10:17 Drug: Zofran (Ondansetron) 4 mg Route: IVP; Site: right antecubital; ko1 10:45 Follow up: Response: No adverse reaction ko1 Disposition Summary: 05/18/22 12:14 Discharge Ordered Location: Home kdr Problem: new kdr Symptoms: have improved kdr Condition: Stable kdr Diagnosis - Unspecified injury of head, initial encounter kdr - Right occipital hematoma kdr - Fracture of first lumbar vertebra kdr Followup: kdr - With: Private Physician - When: 2 - 3 days - Reason: If symptoms return, Further diagnostic work-up, Recheck today's complaints, Continuance of care, Re-evaluation by your physician Discharge Instructions: - Discharge Summary Sheet kdr - Lumbar Spine Fracture kdr - Head Injury, Adult, [id number] kdr Forms: - Medication Reconciliation Form kdr - Thank You Letter kdr - Prescription Opioid Use kdr Prescriptions: - Tylenol-Codeine #3 300 mg-30 mg Oral - take 1 tablet by ORAL route every 4-6 hours As needed; 16 tablet; Refills: 0, kdr Product Selection Permitted Signatures: Dispatcher [employer] Karri Bose MD MD kdr Yenifer Donovan RN RN ko1
[2022-05-18 12:51] VITALS: TEMP 98.1
[2022-05-18 13:13] VITALS: BP 117/50; O2SAT 98
== END 2022-05-18 12:47 | disposition home or self-care (01) ==
LOC: ER 09:28
DX: S32.019A Unspecified fracture of first lumbar vertebra, initial encounter for closed fracture (principal); S00.83XA Contusion of other part of head, initial encounter; Z88.2 Allergy status to sulfonamides
CPT/HCPCS: 85025; 80048; 36415; 70450; 72125; 71260; 74177; Q9967; J2270; J2405; 96374; 96375; 99284